=== PATIENT | female | born 1985 | race Caucasian/White ===

== ENCOUNTER 2016-12-22 00:41 | Emergency (ER) | payer OTHER ==
[~2016-12-22] VITALS: Ht 165.1 cm; Wt 88.0 kg
[~2016-12-22 00:41] MED LIST: CYCL-319 PO; IBUP200C PO; IBUP800T25 PO
[2016-12-22 00:53] VITALS: Ht 165.1 cm; Wt 88.0 kg
[2016-12-22] MEDS ORDERED: ONDA4TAB8 PO (03:27)
--- NOTE | 2016-12-22 03:50 | ERD ---
ER Documentation Chief Complaint Date/Time DATE: 12/22/16 TIME: 03:48 Chief Complaint vomiting x 1 x 1 hour HPI This is a 31-year-old female at comes to the ER complaining of weakness. Patient states that she had 5 shots of Tequila and that afterwards she began to experience a headache and weakness. Patient took an ibuprofen and states that she had one episode of nonbilious nonbloody vomiting. Patient continues to feel nauseous and states she still has a headache. Patient denies any fevers or chills. She denies abdominal pain. She denies diarrhea. Patient denies chest pain or shortness of breath ROS 12 point review of systems was done, all negative except per HPI. Medications Home Meds Active Scripts Ondansetron Hcl* (Zofran*) 4 Mg Tablet, 4 MG PO Q6H for NAUSEA AND/OR VOMITING, #30 TAB Prov:NAMITA CALLES 12/22/16 Cyclobenzaprine Hcl* (Cyclobenzaprine Hcl*) 10 Mg Tablet, 10 MG PO TID, #15 TAB Prov:ADENIKE BRANCH. BLOCKER AND POLISHER 05/29/16 Ibuprofen* (Motrin*) 800 Mg Tab, 800 MG PO Q8 Y for PAIN AND OR ELEVATED TEMP, # 30 TAB Prov:ADENIKE BRANCH. BLOCKER AND POLISHER 05/29/16 Reported Medications Ibuprofen* (Ibuprofen*) 200 Mg Capsule, 200 MG PO Q6 Y for PAIN, CAP 09/15/14 Allergies Allergies: Coded Allergies: No Known Drug Allergies (Verified Allergy, Mild, 12/22/16) PMhx/Soc Medical and Surgical Hx: pt denies Medical Hx, pt denies Surgical Hx History of Surgery: No Anesthesia Reaction: No Hx Neurological Disorder: No Hx Respiratory Disorders: No Hx Cardiac Disorders: No Hx Psychiatric Problems: No Hx Miscellaneous Medical Probl: No Hx Alcohol Use: Yes (socially) Hx Substance Use: No Hx Tobacco Use: No Smoking Status: Never smoker Physical Exam Vitals Vital Signs Date Time Temp Pulse Resp B/P Pulse Ox O2 Delivery O2 Flow Rate FiO2 12/22/16 00:53 99.0 108 20 149/82 99 Physical Exam GENERAL: The patient is well developed and appropriate for usual state of health , in no apparent distress. HEENT: Atraumatic. Conjunctivae are pink. Pupils equal, round, and reactive to light. Extraocular muscles are grossly intact. No nystagmus. Bilateral tympanic membranes are clear with no evidence of erythema, bulging or perforation. NECK: C-spine is soft and supple. There is no cervical lymphadenopathy. CHEST: Clear to auscultation bilaterally. There are no rales, wheezes or rhonchi. HEART: Regular rate and rhythm. No murmurs, clicks, rubs or gallops. EXTREMITIES: Equal pulses bilaterally. There is no peripheral clubbing, cyanosis or edema. No focal swelling or erythema. Full range of motion. Grossly neurovascularly intact. NEURO: Alert and oriented. Cranial nerves II through XII are intact. Motor strength in all 4 extremities with 5/5 strength. Sensation grossly intact. Normal speech and gait. Negative Rhomberg. +2 DTRs. SKIN: There is no apparent rash or petechia. The skin is warm and dry. Procedures/MDM This is a 31-year-old female that presents to the ER for vomiting and fatigue. Patient did have 5 shots of tequila and had an ibuprofen, her symptoms began after this. Suspicion for GI bleed is low as patient has not had any blood in her vomit. Patient likely feels weak and has a headache secondary to dehydration from excessive drinking. Patient neurological exam is benign. She does not have any focal neurological deficits. Patient will be sent home with Bronson for nausea, she was advised to drink a lot of water. Patient is to follow-up with her primary care doctor within 1-2 days or return to ER sooner if symptoms worsen. My medical decision making sure with the patient she understands and agrees with plan Departure Diagnosis: Primary Impression: Vomiting Condition: Stable Patient Instructions: Vomiting (6Y-Adult) Referrals: FELICIA EDMOND MD (PCP) Additional Instructions: Call your primary care doctor TOMORROW for an appointment during the next 1-2 days.See the doctor sooner or return here if your condition worsens before your appointment time. NAMITA CALLES Dec 22, 2016 03:50
[2016-12-22 04:19] VITALS: BP 120/82; PULSE 78; RESP 16
== END 2016-12-22 04:21 | disposition home or self-care (01) ==
LOC: FTE 00:41
DX: R11.10 Vomiting, unspecified (principal)
CPT/HCPCS: 99283

== ENCOUNTER 2017-03-22 15:50 | Emergency (ER) | payer OTHER ==
[~2017-03-22] VITALS: Wt 87.0 kg
[~2017-03-22 15:50] MED LIST changes: +ONDA4TAB8 PO
[2017-03-22] MEDS ORDERED: ONDANSETRON (ODT) 4 MG TAB ODT STA (16:22)
[2017-03-22] MEDS ORDERED: ACETAMINOPHEN 325 MG TAB PO ONE (16:30)
--- NOTE | 2017-03-22 16:59 | RADRPT ---
PROCEDURE: CT Head without contrast. CLINICAL INDICATION: Headaches TECHNIQUE: The study was performed utilizing a GE 64-slice multidetector CT scanner. Direct spiral axial CT images of the brain were obtained from the vertex to the skull base without contrast. Cor onal and sagittal reformat images are provided. The CTDI vol is 44.77 mGy and the DLP is 630.2 mGy- cm. The images were reviewed on a PACS workstation. COMPARISON: No prior studies are available for comparison. FINDINGS: The ventricles and cortical sulci are within normal limits. The gonzalez-white matter differentiation i s maintained. No intra or extra-axial fluid collection or mass effect or shift in the midline struc tures is seen. The visualized paranasal sinuses, mastoid air cells, orbits, and calvarium are unrem arkable. IMPRESSION: Unremarkable CT of the head without contrast. RPTAT: HPNM Physician Richie Date Time Electronically viewed and signed by Physician Richie on 03/22/2017 16:59 /
[2017-03-22] MEDS ORDERED: FIORICET PO (17:41)
--- NOTE | 2017-03-22 17:49 | ERD ---
ER Documentation Chief Complaint Date/Time DATE: 03/22/17 TIME: 17:45 Chief Complaint HEADACHE X3DAYS WITH NAUSEA HPI 31-year-old female patient with no significant past medical history presents to the ED complaining of a headache that started 3 days ago with nausea. Reports that she started to get blurred vision 3 days ago intermittently. States that she seen a corporate lawyer and has been given glasses to help her with her blurred vision however she still gets blurred vision with her glasses on. Describes the headache as pressure-like and rates it a 8 out of 10. States that she has been taking ibuprofen without any relief of the headache. States that she did have a head trauma one year ago but did not get evaluated for that. Denies any loss of consciousness. States that she is nauseous but denies any vomiting. She has some slight photophobia. Denies any photophobia. Denies any seizures, fever, neck stiffness, neck pain, abdominal pain, nausea, vomiting, diarrhea. Denies any eye pain, diplopia. 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 ROS All systems reviewed and are negative except as per history of present illness. Medications Home Meds Active Scripts Acetamin/Butalbital/Caffeine* (Fioricet*) [id number] Tab, 1 TAB PO Q6H Y for PAIN, #30 TAB Prov:JENNIFER URIOSTEGUI PA-C 03/22/17 Ondansetron Hcl* (Zofran*) 4 Mg Tablet, 4 MG PO Q6H for NAUSEA AND/OR VOMITING, #30 TAB Prov:NAMITA CALLES 12/22/16 Cyclobenzaprine Hcl* (Cyclobenzaprine Hcl*) 10 Mg Tablet, 10 MG PO TID, #15 TAB Prov:ADENIKE BRANCH FUNERAL LIMOUSINE DRIVER 05/29/16 Ibuprofen* (Motrin*) 800 Mg Tab, 800 MG PO Q8 Y for PAIN AND OR ELEVATED TEMP, # 30 TAB Prov:ADENIKE BRANCH FUNERAL LIMOUSINE DRIVER 05/29/16 Reported Medications Ibuprofen* (Ibuprofen*) 200 Mg Capsule, 200 MG PO Q6 Y for PAIN, CAP 09/15/14 Allergies Allergies: Coded Allergies: No Known Drug Allergies (Verified Allergy, Mild, 12/22/16) PMhx/Soc History of Surgery: No Anesthesia Reaction: No Hx Neurological Disorder: No Hx Respiratory Disorders: No Hx Cardiac Disorders: No Hx Psychiatric Problems: No Hx Miscellaneous Medical Probl: No Hx Alcohol Use: Yes (socially) Hx Substance Use: No Hx Tobacco Use: No Physical Exam Vitals Vital Signs Date Time Temp Pulse Resp B/P Pulse Ox O2 Delivery O2 Flow Rate FiO2 03/22/17 15:52 98.8 87 12 128/73 99 Physical Exam Const: Hqb-cmu-[id number], well-nourished. In no acute distress. Head: Atraumatic, normocephalic Eyes: Normal Conjunctiva without injection. No purulent discharge. PERRLA. EOMI ENT: Normal external ear. Ear canal without erythema. Tympanic membrane pearly gonzalez without effusion or bulging. Nasal canal clear with normal turbinates. Moist oropharynx without tonsillar exudates. Non-erythematous pharynx. Uvula midline. No drooling. No trismus. Neck: No cervical midline tenderness. Full range of motion. No meningismus. No cervical lymphadenopathy. No JVD. Resp: Clear to auscultation bilaterally. No wheezing, rhonchi, rales, or crackles. No accessory muscle use. No retractions. Cardio: Regular rate and rhythm. No murmurs, rubs or gallops. Abd: Soft, non tender, non distended. Normal bowel sounds. No palpable masses. No rebound tenderness. No guarding. Negative McBurney's Point. Negative Elias's Sign. Skin: Normal skin turgor. No petechiae or rashes Back: No midline tenderness. No CVA tenderness. Ext: No cyanosis, or edema. Distal pulses intact bilaterally. Neur: Awake and alert. Normal gait. Normal coordination. Cranial Nerves II- VII intact. Normal finger to nose. Muscle strength 5/5. Sensation intact. Psych: Normal Mood and Affect Results 24 hrs Current Medications Medications (Trade) Dose Ordered Sig/Richard Route PRN Reason Start Time Stop Time Status Last Admin Dose Admin Ondansetron HCl (Zofran Odt) 4 mg ONCE STAT ODT 03/22/17 16:22 03/22/17 16:24 DC 03/22/17 16:33 Acetaminophen (Tylenol Tab) 650 mg ONCE ONCE PO 03/22/17 16:30 03/22/17 16:31 DC 03/22/17 16:33 Procedures/MDM This is a 31-year-old female patient with a previous history of Bryan's palsy presents the ED complaining of a headache that started 3 days ago. Patient is afebrile nontoxic appearing. Patient has normal vital signs. Visual acuity 20/ 20 Bilaterally, Left and Right. Patient given Zofran and Tylenol with improvement of symptoms. PROCEDURE: CT Head without contrast. CLINICAL INDICATION: Headaches TECHNIQUE: The study was performed utilizing a GE 64-slice multidetector CT scanner. Direct spiral axial CT images of the brain were obtained from the vertex to the skull base without contrast. Coronal and sagittal reformat images are provided. The CTDI vol is 44.77 mGy and the DLP is 630.2 mGy-cm. The images were reviewed on a PACS workstation. COMPARISON: No prior studies are available for comparison. FINDINGS: The ventricles and cortical sulci are within normal limits. The gonzalez-white matter differentiation is maintained. No intra or extra-axial fluid collection or mass effect or shift in the midline structures is seen. The visualized paranasal sinuses, mastoid air cells, orbits, and calvarium are unremarkable. IMPRESSION: Unremarkable CT of the head without contrast. Patient's headache is nonspecific at this time. Low suspicion for cluster headache, intracranial bleed, subarachnoid hemorrhage, epidural hematoma, Bryan' s Palsy, carotid dissection, carotid aneurysm, subdural hematoma, seizures, TIA , stroke, meningitis or emergent conditions. This case was discussed with my supervising physician, Dr. Silva who agreed with the management and discharge plan. Discharge medications: Fioricet Follow up with primary care physician in 1-2 days for a neurology referral. Instructed patient to return to the ED sooner for any worsening symptoms. Patient's questions were answered. Patient understood and agreed with discharge plan. Patient discharged stable. Departure Diagnosis: Primary Impression: Headache Headache type: unspecified Headache chronicity pattern: unspecified pattern Intractability: not intractable Qualified Code: R51 - Nonintractable headache, unspecified chronicity pattern, unspecified headache type Condition: Stable Patient Instructions: Headache, Unspecified Referrals: FELICIA EDMOND MD (PCP) QUANG CORONA MD,AAKASH VALDOVINOS,GINO QUIROGA MD, MD, ANDREW M MD HIJAZIN, MUNTHER A KARAYAN, RONNIE TIAGO,SYL LEIGH,KELLY JASSO MD [facility] YOU HAVE RECEIVED A MEDICAL SCREENING EXAM AND THE RESULTS INDICATE THAT YOU DO NOT HAVE A CONDITION THAT REQUIRES URGENT TREATMENT IN THE EMERGENCY DEPARTMENT. FURTHER EVALUATION AND TREATMENT OF YOUR CONDITION CAN WAIT UNTIL YOU ARE SEEN IN YOUR DOCTORS OFFICE WITHIN THE NEXT 1-2 DAYS. IT IS YOUR RESPONSIBILITY TO MAKE AN APPOINTMENT FOR FOLOW-UP CARE. IF YOU HAVE A PRIMARY DOCTOR --you should call your primary doctor and schedule an appointment IF YOU DO NOT HAVE A PRIMARY DOCTOR YOU CAN CALL OUR PHYSICIAN REFERRAL HOTLINE AT IF YOU CAN NOT AFFORD TO SEE A PHYSICIAN YOU CAN CHOSE FROM THE FOLLOWING [facility] [address] [facility] [address] [facility] [facility] [address] [facility] [address] [facility] [address]. [facility] [address] [facility]. [facility] YOU HAVE RECEIVED A MEDICAL SCREENING EXAM AND THE RESULTS INDICATE THAT YOU DO NOT HAVE A CONDITION THAT REQUIRES URGENT TREATMENT IN THE EMERGENCY DEPARTMENT. FURTHER EVALUATION AND TREATMENT OF YOUR CONDITION CAN WAIT UNTIL YOU ARE SEEN IN YOUR DOCTORS OFFICE WITHIN THE NEXT 1-2 DAYS. IT IS YOUR RESPONSIBILITY TO MAKE AN APPOINTMENT FOR FOLOW-UP CARE. IF YOU HAVE A PRIMARY DOCTOR --you should call your primary doctor and schedule and appointment IF YOU DO NOT HAVE A PRIMARY DOCTOR YOU CAN CALL OUR PHYSICIAN REFERRAL HOTLINE AT . IF YOU CAN NOT AFFORD TO SEE A PHYSICIAN YOU CAN CHOSE FROM THE FOLLOWING [facility]: [facility] [address] [place] [address] [facility] [address] [place] [address] [facility] [address] [place] [address] [facility] URGENT [facility]/SPECIALTIES Additional Instructions: Llame al doctor MAANA y katty jayda STEFANO PARA DENTRO DE 2-3 MONZON para jayda referencia a un neurlogo. Dgale a la secretaria que nosotros le instruimos hacer esta stefano.Avise o llame si lemus condicin se empeora antes de la stefano. Regresa aqui si peor o no mejor. JENNIFER URIOSTEGUI PA-C March 22, 2017 17:49
== END 2017-03-22 17:42 | disposition home or self-care (01) ==
LOC: FTE 15:50
DX: R51 Headache (principal); R11.0 Nausea
CPT/HCPCS: 70450; Z7610

== ENCOUNTER 2017-04-15 11:54 | Day surgery (SDC) | payer OTHER ==
[~2017-04-15] VITALS: Ht 162.6 cm; Wt 87.3 kg
[~2017-04-15 11:54] MED LIST changes: +FIORICET PO
[2017-04-15 12:48] VITALS: Ht 162.6 cm; Wt 87.3 kg
[2017-04-15] MEDS ORDERED: OMEP20CA16 PO (12:50)
[2017-04-15] MEDS ORDERED: VIT D3 (12:50)
[2017-04-15] MEDS ORDERED: LIDOCAINE 4% SOLUTION 50 ML BTL ONE (13:53)
[2017-04-15] MEDS ORDERED: FENTAnyl 50 MCG/ML VIAL ONE (14:17)
[2017-04-15] MEDS ORDERED: MIDAZOLAM 1 MG/ML 2 ML INJ ONE ×2 (14:17)
[2017-04-15 14:40] VITALS: BP 103/70; PULSE 67; RESP 18
--- NOTE | 2017-04-15 21:08 | GILP ---
DATE OF PROCEDURE: PREOPERATIVE DIAGNOSIS: Abdominal pain. The patient is on ibuprofen. PROCEDURE DONE: Esophagogastroduodenoscopy and biopsy. POSTOPERATIVE DIAGNOSES: 1. Mild distal esophagitis grade I. 2. Gastroesophageal junction with narrow band visualized, has only 1 erosion. 3. Small hiatus hernia noted. 4. In the antrum, there was evidence of antral nodularity with gastritis. This was photographed an d biopsies done. DESCRIPTION OF PROCEDURE: The patient was put in left lateral decubitus. After obtaining informed consent, was sedated with 3 mg IV Versed, 75 mcg of fentanyl. Posterior pharynx anesthetized with 4 % Xylocaine. Very carefully, advanced Olympus video upper endoscope into the esophagus, stomach, an d duodenum. Esophagus was essentially normal except at the GE junction there was 1 erosion, mild es ophagitis suspected here, small hiatus hernia about 2 cm in size, and examination of the stomach inc luding fundus by retroflexion was normal except for antral nodularity with mild gastritis. This may be NSAID induced; however, biopsies done to rule out H. pylori. Duodenal bulb and second and third part normal. Scope was withdrawn. The patient had no complication. PLAN: Will be to await for biopsy report. Advised her to avoid NSAID medication if possible. She is taking it for sciatica. She is going to see orthopedic arthroscopic surgeon, I believe, soon. I will follow her as outpatient in 2 weeks. Dictated By: JOO FELDMAN Conf#: [id number] DID#: [id number] CC: Stevan Ceballos;*EndCC*
[2017-04-16] MEDS ORDERED: ONDA8TAB14 PO (02:24)
[2017-04-16] MEDS ORDERED: FIORICET PO (02:24)
== END 2017-04-15 16:12 | disposition home or self-care (01) ==
LOC: GIL 11:54
PROVIDERS: ATTEND Internal Medicine
DX: K20.8 Other esophagitis (principal); K44.9 Diaphragmatic hernia without obstruction or gangrene
CPT/HCPCS: 43239; 84702; 88305; J2250; J3010; Z7610

== ENCOUNTER 2017-04-15 23:06 | Emergency (ER) | payer OTHER ==
[~2017-04-15] VITALS: Ht 162.6 cm; Wt 82.7 kg
[~2017-04-15 23:06] MED LIST changes: +OMEP20CA16 PO; +VIT D3
[2017-04-15 23:07] VITALS: Ht 162.6 cm; Wt 82.7 kg
[2017-04-16] MEDS ORDERED: ONDANSETRON (ODT) 4 MG TAB ODT STA (01:05)
[2017-04-16] MEDS ORDERED: ACET/BUTAL/CAFF/CODEINE CAP PO ONE (01:30)
[2017-04-16] MEDS ORDERED: ONDA8TAB14 PO (02:24)
[2017-04-16] MEDS ORDERED: FIORICET PO (02:24)
--- NOTE | 2017-04-16 02:35 | ERD ---
ER Documentation Chief Complaint Date/Time DATE: 04/16/17 TIME: 02:25 Chief Complaint RETURNS (SEEN EARLIER TODAY, DX ESOPHAGITIS) FOR THROAT & HEAD PAIN X 3 HRS HPI Patient is a 31-year-old female with a past medical history of migraines presents to the emergency department for concerns of throat pain and headache. Patient states her symptoms started approximately 3 hours ago. Earlier this morning, patient underwent an endoscopy. She was diagnosed with esophagitis. Patient states that her headache is primarily in the frontal region. Patient reports nausea and 2 episodes of nonbloody nonbilious vomiting. Patient also does report photophobia. Patient denies any fevers, chills, neck pain, neck stiffness or LOC. Patient states she took sumatriptan approximately 2 hours ago however she had no alleviation of her headache. Patient states that her pain is getting gradually worse. Patient denies sudden, thunderclap onset. Patient states that her current headache does feel like previous migraines. She also reports throat pain. Patient denies any drooling, trismus or hyperextension of her neck. Patient denies any abdominal pain or diarrhea. She is able to tolerate p.o. fluids. ROS All systems reviewed and are negative except as per history of present illness. Medications Home Meds Active Scripts Acetamin/Butalbital/Caffeine* (Fioricet*) [id number] Tab, 1 TAB PO Q6H Y for PAIN, #15 TAB Prov:ALEISHA LIANG PA-C 04/16/17 Ondansetron (Ondansetron Odt) 8 Mg Tab.rapdis, 8 MG PO Q6H Y for NAUSEA AND/OR VOMITING, #10 TAB Prov:ALEISHA LIANG PA-C 04/16/17 Ibuprofen* (Motrin*) 800 Mg Tab, 800 MG PO Q8 Y for PAIN AND OR ELEVATED TEMP, # 30 TAB Prov:ADENIKE BRANCH NP 05/29/16 Reported Medications [Vit.d-3 Daily] No Conflict Check 04/15/17 Omeprazole* (Omeprazole*) 20 Mg Capsule.dr, 20 MG PO DAILY, #30 CAP 04/15/17 Ibuprofen* (Ibuprofen*) 200 Mg Capsule, 200 MG PO Q6 Y for PAIN, CAP 09/15/14 Discontinued Scripts Acetamin/Butalbital/Caffeine* (Fioricet*) [id number] Tab, 1 TAB PO Q6H Y for PAIN, #30 TAB Prov:JENNIFER URIOSTEGUI PA-C 03/22/17 Ondansetron Hcl* (Zofran*) 4 Mg Tablet, 4 MG PO Q6H for NAUSEA AND/OR VOMITING, #30 TAB Prov:STEVANNAMITA Wallace 12/22/16 Cyclobenzaprine Hcl* (Cyclobenzaprine Hcl*) 10 Mg Tablet, 10 MG PO TID, #15 TAB Prov:ADENIKE BRANCH DATA ENTRY CLERK 05/29/16 Allergies Allergies: Coded Allergies: No Known Drug Allergies (Verified Allergy, Mild, 12/22/16) PMhx/Soc History of Surgery: Yes (C/S X 1) Anesthesia Reaction: No Hx Neurological Disorder: Yes (MIGRAINES) Hx Respiratory Disorders: No Hx Cardiac Disorders: No Hx Psychiatric Problems: No Hx Miscellaneous Medical Probl: No Hx Alcohol Use: Yes Hx Substance Use: No Hx Tobacco Use: No Smoking Status: Never smoker FmHx Family History: No diabetes Physical Exam Vitals Vital Signs Date Time Temp Pulse Resp B/P Pulse Ox O2 Delivery O2 Flow Rate FiO2 04/15/17 23:07 99.3 86 18 156/86 100 Physical Exam GENERAL: Well-developed, well-nourished female. Appears in no acute distress. HEAD: Normocephalic, atraumatic. EYES: Pupils are equally reactive bilaterally. EOMs grossly intact. No conjunctival erythema. ENT: Moist mucous membranes. Oropharynx is pink without any tonsillar erythema or exudates noted. No uvula deviation. No kissing tonsils. No throat swelling noted. No active bleeding noted. NECK: Supple. No meningismus. Normal range of motion of the neck. LUNG: Clear to auscultation bilaterally. No rhonchi, wheezing, rales or coarse breath sounds. HEART: Regular rate and rhythm. No murmurs, rubs or gallops. EXTREMITIES: Equal pulses bilaterally. No peripheral clubbing, cyanosis or edema. No unilateral leg swelling. NEUROLOGIC: Alert and oriented x3, cooperative. Mood and affect appropriate to situation. Cranial nerves II through XII are grossly intact. Normal speech. Motor exam: 5/5 strength in upper and lower extremities. Sensory exam: Sensation intact to light touch on all four extremities. Cerebellar function exam: No dysmetria on [id number]-er-bwex test. Steady gait. No pronator drift. SKIN: Normal color. Warm and dry. No rashes or lesions. Results 24 hrs Current Medications Medications (Trade) Dose Ordered Sig/Richard Route PRN Reason Start Time Stop Time Status Last Admin Dose Admin Acetam/Butalbital/ Caffeine/Codeine (Fioricet/ Codeine) 1 cap ONCE ONCE PO 04/16/17 01:30 04/16/17 01:31 DC 04/16/17 01:31 Ondansetron HCl (Zofran Odt) 4 mg ONCE STAT ODT 04/16/17 01:05 04/16/17 01:07 DC 04/16/17 01:30 Procedures/MDM ED COURSE: The patient was stable throughout ED course. I kept the patient and/or family informed of laboratory and diagnostic imaging results throughout the ED course. MEDICATIONS GIVEN: Fioricet with codeine, Zofran Patient tolerated medication well with no adverse reactions. Patient reported improvement in pain. MEDICAL DECISION MAKING: This is a 31-year-old female who presents to the ED with a headache and throat irritation which started 3 hours ago. Patient underwent an endoscopy earlier this morning. Patient reports taking sumatriptan 2 hours ago which did not alleviate her headache. Vital signs were reviewed. Patient was afebrile. Patient is not hypoxic. Full neurological exam was normal. She was given Fioricet with codeine as well as Zofran here in the ED. No additional episodes of vomiting were noted throughout the ED course. Patient was noted to be sleeping upon my reexamination. Patient did not appear to be in any severe discomfort or distress.. Given these findings, the patient's presentation is most consistent with migraine headache and throat irritation secondary to endoscopy procedure. I have a much lower clinical concern for intracranial hemorrhage, meningitis, encephalitis, CO poisoning, temporal arteritis, benign intracranial hypertension, intracranial mass, glaucoma, preeclampsia, cluster headache, strep pharyngitis, peritonsillar abscess, esophageal rupture. PRESCRIPTIONS: Fioricet, Zofran DISCHARGE: At this time, patient is stable for discharge and outpatient management. Patient was advised to follow-up with her GI specialist for further management of her symptoms. I have encouraged the patient to hydrate well. I have instructed the patient to follow-up with his/her primary care physician in 1-2 days. If symptoms persist, patient may need to see a neurologist for further examinations and testing. I have instructed the patient to promptly return to the ER at any time for any new or worsening symptoms including increased increased pain, fever, nausea, vomiting, numbness, neck stiffness, visual changes, weakness or LOC. The patient and/or family expressed understanding of and agreement with this plan. All questions were answered. Home care instructions were provided. Patient's blood pressure was elevated (>120/80) but appears stable without evidence of hypertensive emergency, hypertensive urgency or end-organ failure. I had discussion with the patient about the risks of hypertension. I have advised the patient to follow up with his/her primary care physician for outpatient monitoring and treatment for hypertension in 2-3 days. I have instructed the patient to return to the ER for any new or worsening symptoms including chest pain, shortness of breath, headache, blurred vision, confusion, nausea, vomiting or LOC. Departure Diagnosis: Primary Impression: Migraine Migraine type: unspecified Status migrainosus presence: without status migrainosus Intractability: not intractable Qualified Code: G43.909 - Migraine without status migrainosus, not intractable, unspecified migraine type Additional Impression: Throat irritation Condition: Stable Patient Instructions: What Are Migraine and Tension Headaches?, Recovery from Mouth or Throat Surgery Additional Instructions: Call your primary care doctor TOMORROW for an appointment during the next 1-2 days.See the doctor sooner or return here if your condition worsens before your appointment time. Follow-up with your GI specialist for further management of your esophagitis. ALEISHA LAING PA-C Apr 16, 2017 02:35
[2017-04-16 03:05] VITALS: BP 125/77; PULSE 81; RESP 16
== END 2017-04-16 03:05 | disposition home or self-care (01) ==
LOC: FTE 23:06
DX: G43.909 Migraine, unspecified, not intractable, without status migrainosus (principal)
CPT/HCPCS: Z7502; Z7610; 99284

== ENCOUNTER 2017-05-22 01:33 | Emergency (ER) | payer OTHER ==
[~2017-05-22] VITALS: Ht 167.6 cm; Wt 87.1 kg
[~2017-05-22 01:33] MED LIST changes: -CYCL-319 PO; -ONDA4TAB8 PO; +ONDA8TAB14 PO
[2017-05-22 01:43] VITALS: Ht 167.6 cm; Wt 87.1 kg
[2017-05-22] MEDS ORDERED: KETOROLAC 60 MG INJ IM STA (02:30)
[2017-05-22] MEDS ORDERED: ONDANSETRON (ODT) 4 MG TAB ODT STA (02:30)
--- NOTE | 2017-05-22 02:41 | ERD ---
ER Documentation Chief Complaint Date/Time DATE: 05/22/17 TIME: 02:39 Chief Complaint back pain and dysuria HPI 31-year-old female who presents emergency department for dysuria, back pain for 2 days. Denies headache, loss of consciousness, dizziness, blurry vision, changes in vision, photophobia, facial pain, ear pain, throat pain, difficulty swallowing, neck pain, shoulder pain, chest pain, cough, hemoptysis, abdominal pain, loss of appetite, nausea, vomiting, hematochezia, diarrhea, constipation, , the possibility of being , bladder and bowel incontinences, extremity weakness, extremity tenderness, numbness or tingling sensation, difficulty walking, recent travel, recent exposure to illness, recent antibiotic use in the last 3 months, fever, chills. Allergy: No known drug allergies. PMH: Denies. Family medical history: Denies. A1. LMP: April 23, 2017. Medications: Denies. Surgery: . Primary Social History: Works as a coffee shop manager. Occasional drinks alcoholic beverages. Denies smoking, use of illegal drugs. ROS All systems reviewed and are negative except as per history of present illness. Medications Home Meds Active Scripts Ibuprofen* (Motrin*) 800 Mg Tab, 800 MG PO Q6H Y for PAIN AND OR ELEVATED TEMP, #30 TAB Prov:GERMAN MARC 05/22/17 Acetaminophen* (Tylophen*) 500 Mg Capsule, 1 CAP PO Q6H Y for PAIN AND OR ELEVATED TEMP, #20 CAP Prov:GERMAN MARC 05/22/17 Ondansetron (Ondansetron Odt) 4 Mg Tab.rapdis, 4 MG PO Q8 Y for NAUSEA AND/OR VOMITING, #20 TAB Prov:GERMAN MARC 05/22/17 Cephalexin* (Keflex*) 500 Mg Capsule, 500 MG PO QID for 5 Days, CAP Prov:GERMAN MARC F 05/22/17 Acetamin/Butalbital/Caffeine* (Fioricet*) [id number] Tab, 1 TAB PO Q6H Y for PAIN, #15 TAB Prov:ALEISHA LIANG PA-C 04/16/17 Ondansetron (Ondansetron Odt) 8 Mg Tab.rapdis, 8 MG PO Q6H Y for NAUSEA AND/OR VOMITING, #10 TAB Prov:ALEISHA LIANG PA-C 04/16/17 Ibuprofen* (Motrin*) 800 Mg Tab, 800 MG PO Q8 Y for PAIN AND OR ELEVATED TEMP, # 30 TAB Prov:ADENIKE BRANCH [employer] 05/29/16 Reported Medications [Vit.d-3 Daily] No Conflict Check 04/15/17 Omeprazole* (Omeprazole*) 20 Mg Capsule.dr, 20 MG PO DAILY, #30 CAP 04/15/17 Ibuprofen* (Ibuprofen*) 200 Mg Capsule, 200 MG PO Q6 Y for PAIN, CAP 09/15/14 Allergies Allergies: Coded Allergies: No Known Drug Allergies (Verified Allergy, Mild, 12/22/16) PMhx/Soc History of Surgery: Yes (C/S X 1) Anesthesia Reaction: No Hx Neurological Disorder: Yes (MIGRAINES) Hx Respiratory Disorders: No Hx Cardiac Disorders: No Hx Psychiatric Problems: No Hx Miscellaneous Medical Probl: No Hx Alcohol Use: Yes (SOCIALLY) Hx Substance Use: No Hx Tobacco Use: No Smoking Status: Never smoker Physical Exam Vitals Vital Signs Date Time Temp Pulse Resp B/P Pulse Ox O2 Delivery O2 Flow Rate FiO2 05/22/17 04:00 98.2 67 18 115/71 99 Room Air 05/22/17 01:43 98.3 70 18 118/70 98 Physical Exam CONSTITUTIONAL: Well-appearing; well-nourished; in no apparent distress. HEAD: Normocephalic; atraumatic. EYES: Conjunctiva clear, sclera non-icteric, EOM intact. PERRL Ears: Hearing intact. EACs clear, TMs non-bulging, non-inflamed, translucent & mobile, ossicles normal appearance, No obstructions, no erythema, no discharges Nose: No obstructions. No polyps. No external lesions. Mucosa non-inflamed. No external lesions, septum and turbinates normal. No rhinorrhea. No discharges. Frontal sinus is non-tender to palpation. Maxillary sinus is non-tender to palpation. MOUTH: Moist mucous membranes, no lesion, no obstructions, no vesicles, no thrush, patent airway Throat: Uvula in midline. Right tonsil is +1 with no erythema, no exudate. Left tonsil is +1 with no erythema, no exudate. Tolerating secretions well. Good gag reflex. Patent airway. Neck: Supple, without lesions, bruits, or adenopathy. No mass. Thyroid non- enlarged and non-tender to palpation. CHEST: Symmetrical chest. Respirations even and not labored. No retractions noted. CARDIOVASCULAR: Normal S1, S2. RRR. No murmurs, gallops. RESPIRATORY: Normal chest excursion with respiration; breath sounds clear and equal bilaterally; no wheezes, rhonchi, or rales. Breathing even and unlabored. Speaking in clear, full, and complete sentences w/ ease. ABDOMEN: Normal bowel sounds normal. Soft, round, non-distended, non-guarding, no tenderness, no rebound, no organomegaly, no masses, no pulsating abdominal mass. There is no right upper/right lower/epigastric/left upper/left lower abdominal tenderness and light and deep palpation. Negative Rovsing's sign. Negative Rosalba sign. Able to jump 10 times without developing abdominal pain. No hernia. No peritoneal signs. : No CVA tenderness. BACK: Symmetrical shoulder. Spine is midline without deformity, tenderness. No evidence of trauma or deformity. PELVIS: Stable pelvis. No evidence of trauma or deformity. MUSCULOSKELETAL: Normal gait and station. No misalignment, asymmetry, crepitation, defects, tenderness, masses, effusions, decreased range of motion, instability, atrophy or abnormal strength or tone in the head, neck, spine, ribs , pelvis or extremities. No calf tenderness. NEUROVASCULAR: Distal pulses are present. Pedal pulse are present, equal, and normal. Capillary refills are < 2 seconds. NEUROLOGIC: Alert and oriented x4. Speaks full and clear sentences. Cranial Nerves II-XII normal. Sensation to pain, touch, and proprioception normal. Grossly unremarkable. No neurologic deficits. Romberg test is negative. PSYCHOLOGICAL: The patients mood and manner are appropriate. No hallucinations , delusions. Not SI. Not HI. Has the capacity to decide for self SKIN: Normal for age and ethnicity; warm; dry; good turgor; no apparent lesions or exudates. No rashes, hives, discoloration. Intact. Results 24 hrs Laboratory Tests Test 05/22/17 02:38 Urine Color PHIL Urine Clarity CLEAR Urine pH 6.0 Urine Specific [place] 1.009 Urine Ketones NEGATIVEmg/dL Urine Nitrite POSITIVEmg/dL Urine Bilirubin NEGATIVEmg/dL Urine Urobilinogen NEGATIVEmg/dL Urine Leukocyte Esterase 2+Veena/ul Urine Microscopic RBC 2/HPF Urine Microscopic WBC 4/HPF Urine Squamous Epithelial Cells FEW/HPF Urine Hemoglobin 1+mg/dL Urine Glucose NEGATIVEmg/dL Urine Total Protein NEGATIVEmg/dl Current Medications Medications (Trade) Dose Ordered Sig/Richard Route PRN Reason Start Time Stop Time Status Last Admin Dose Admin Ketorolac Tromethamine (Toradol) 60 mg ONCE STAT IM 05/22/17 02:30 05/22/17 02:31 DC 05/22/17 02:46 Ondansetron HCl (Zofran Odt) 4 mg ONCE STAT ODT 05/22/17 02:30 05/22/17 02:31 DC 05/22/17 02:46 Procedures/MDM Examination: Please see physical examination Disease process, medical treatment was explained to the patient and family member. They verbalized understanding and agreed with the diagnostic tests, medical treatment, and follow-up care. POC urine : Negative. Urinalysis: UTI Treatment: Toradol IM. Zofran. Re-evaluation: Denies headache, dizziness, blurry vision, neck pain, shoulder pain, chest pain, back pain, abdominal pain, nausea, vomiting. No episode of emesis in the emergency department. Alert and oriented 4. Speaks full and clear sentences. Respirations even and unlabored. Lung sounds clear to auscultation. Active bowel sounds. There is no right upper/right lower/ epigastric/left upper/left lower abdominal tenderness and light and deep palpation. Negative on Rovsings sign. Negative Rosalba sign. Able to jump 5 times without developing right-sided abdominal pain. No peritoneal signs. Ambulatory with steady gait. No neurovascular deficits. No neurological deficits. Consultation: None. Differential diagnosis: Appendicitis versus nephrolithiasis versus pancreatitis versus cholecystitis versus urinary tract infection Medical decision makin-year-old female who presents emergency department for dysuria, back pain for 2 days. Patient's complaint, patient's history about her complaint, my physical findings, diagnostic test results, my reevaluation are consistent my final diagnosis of urinary tract infection. Medications prescribed are the following: Keflex. Zofran. Tylenol. Motrin. Patient and family member are made aware of the side effects and adverse reactions of the medications prescribed. Instructed on when to seek emergent and medical attention in case allergic/anaphylactic reactions or severe side effects and or adverse reactions to medications. Patient and family member verbalized understanding. Patient instructed Instructed to follow-up with his PCP in 24-48 hours. Stated that she will make sure to see her primary care physician the next 24 hours. Instructed to Call 911 for chest pain, shortness of breath. Advised to come back here in ED as soon as possible for severity of symptoms which includes but not limited to: any new symptoms; shortness of breath/difficulty of breathing; cardiovascular changes; severe gastrointestinal symptoms; signs and symptoms of bleeding and or infection; signs of compartment syndrome/neurovascular changes; neurological changes/deficits. Patient and family member verbalized understanding. Upon discharge, patient is alert and oriented x 4, speaks full and clear sentences, denies pain, has no neurological deficits, has no neurovascular deficits, difficulty of breathing. Breathing even and unlabored. Lung sounds are clear to auscultation. Not in distress. Appears comfortable. Ambulatory with steady gait. Appears satisfied with care provided here in ED. Departure Diagnosis: Primary Impression: UTI (urinary tract infection) Condition: Good Additional Instructions: Instructed to follow-up with his PCP in 24-48 hours. Stated that she will make sure to see her primary care physician the next 24 hours. Instructed to Call 911 for chest pain, shortness of breath. Advised to come back here in ED as soon as possible for severity of symptoms which includes but not limited to: any new symptoms; shortness of breath/difficulty of breathing; cardiovascular changes; severe gastrointestinal symptoms; signs and symptoms of bleeding and or infection; signs of compartment syndrome/neurovascular changes; neurological changes/deficits. Patient and family member verbalized understanding. GERMAN MARC May 22, 2017 02:41
[2017-05-22 03:27] LABS: ADD UMIC YES; UR ASCORBIC ACID NEGATIVE (NEGATIVE); UR BILIRUBIN (Dip) NEGATIVE (NEGATIVE); UR BLOOD (Dip) 1+ mg/dL (NEGATIVE); UR CLARITY CLEAR (CLEAR); UR COLOR AMBER (YELLOW); UR GLUCOSE (Dip) NEGATIVE (NEGATIVE); UR KETONES (Dip) NEGATIVE (NEGATIVE); UR LEUKOCYTE ESTERASE (Dip) 2+ Leu/ul (NEGATIVE); UR NITRITE (Dip) POSITIVE (NEGATIVE); UR RBC 2 /HPF (0-5); UR SPECIFIC GRAVITY (Dip) 1.009 (1.003-1.030); UR SQUAMOUS EPITHELIAL CELL FEW /HPF (FEW); UR TOTAL PROTEIN (Dip) NEGATIVE (NEGATIVE); UR UROBILINOGEN (Dip) NEGATIVE (NEGATIVE)
[2017-05-22] MEDS ORDERED: CEPH-443 PO (03:44)
[2017-05-22] MEDS ORDERED: ONDA4TAB14 PO (03:44)
[2017-05-22] MEDS ORDERED: ACET500C5 PO (03:44)
[2017-05-22] MEDS ORDERED: IBUP800T25 PO (03:45)
[2017-05-22 04:00] VITALS: BP 115/71; PULSE 67; RESP 18; TEMP 98.2
== END 2017-05-22 04:00 | disposition home or self-care (01) ==
LOC: FTE 01:33
DX: N39.0 Urinary tract infection, site not specified (principal)
CPT/HCPCS: 81001; 96372; J1885; Z7502; Z7610

== ENCOUNTER 2017-06-03 11:37 | Emergency (ER) | payer OTHER ==
[~2017-06-03] VITALS: Ht 160 cm; Wt 86.0 kg
[~2017-06-03 11:37] MED LIST changes: +ACET500C5 PO; +CEPH-443 PO; +ONDA4TAB14 PO
[2017-06-03 11:42] VITALS: Ht 160 cm; Wt 86.0 kg
[2017-06-03] MEDS ORDERED: FAMOTIDINE 20 MG INJ IV STA (13:02)
[2017-06-03] MEDS ORDERED: ONDANSETRON 4 MG INJ IV STA (13:02)
[2017-06-03] MEDS ORDERED: morphine 4 MG/ML VIAL IV STA (13:02)
[2017-06-03] MEDS ORDERED: LIDOCAINE/MYLANTA 40 ML BTL PO ONE (13:30)
[2017-06-03 13:36] LABS: ADD UMIC NO; UR ASCORBIC ACID NEGATIVE (NEGATIVE); UR BILIRUBIN (Dip) NEGATIVE (NEGATIVE); UR BLOOD (Dip) NEGATIVE (NEGATIVE); UR CLARITY CLEAR (CLEAR); UR COLOR YELLOW (YELLOW); UR GLUCOSE (Dip) NEGATIVE (NEGATIVE); UR KETONES (Dip) NEGATIVE (NEGATIVE); UR LEUKOCYTE ESTERASE (Dip) NEGATIVE Leu/ul (NEGATIVE); UR NITRITE (Dip) NEGATIVE (NEGATIVE); UR SPECIFIC GRAVITY (Dip) 1.017 (1.003-1.030); UR TOTAL PROTEIN (Dip) NEGATIVE (NEGATIVE); UR UROBILINOGEN (Dip) NEGATIVE (NEGATIVE)
--- NOTE | 2017-06-03 13:43 | RADRPT ---
PROCEDURE: Right Upper Quadrant Ultrasound. CLINICAL INDICATION: Abdominal Pain TECHNIQUE: Multiple real-time images were acquired of the patient's right upper quadrant abdomen a nd retroperitoneum utilizing a high resolution transducer. COMPARISON: None FINDINGS: The liver measures 16.8 cm, and demonstrates mildly increased echogenicity. The main portal vein is patent with proper directional flow. There is no intrahepatic biliary ductal dilatation. The extrahe patic common bile duct measures 5 mm. There is cholelithiasis. There is no gallbladder wall thickening or pericholecystic fluid. The visualized pancreas is unremarkable. The right kidney measures 11.7 cm and demonstrates normal echotexture. There is no right renal calcu elvie or hydronephrosis. The visualized abdominal aorta and IVC are grossly unremarkable. IMPRESSION: Mild hepatomegaly with mild fatty infiltration. Cholelithiasis without evidence of acute cholecystitis. Normal CBD. RPTAT: EE Physician Tawana Date Time Electronically viewed and signed by Physician Tawana on 06/03/2017 13:43 /
[2017-06-03 13:48] LABS: BASOPHILS % 0.4 % (0.0-2.0); EOSINOPHILS # 0.1 10^3/ul (0.0-0.5); EOSINOPHILS % 1.9 % (0.0-7.0); HEMATOCRIT 42.2 % (37.0-47.0); HEMOGLOBIN 14.5 g/dl (12.0-16.0); LYMPHOCYTES # 2.2 10^3/ul (0.8-2.9); LYMPHOCYTES % 29.4 % (15.0-51.0); MEAN CORPUSCULAR HEMOGLOBIN 29.6 pg (29.0-33.0); MEAN CORPUSCULAR HGB CONC 34.4 g/dl (32.0-37.0); MEAN CORPUSCULAR VOLUME 86.1 fl (82.0-101.0); MONOCYTE # 0.5 10^3/ul (0.3-0.9); MONOCYTES % 6.6 % (0.0-11.0); NEUTROPHIL # 4.5 10^3/ul (1.6-7.5); NEUTROPHILS % 61.3 % (39.0-77.0); PLATELET COUNT 220 10^3/UL (140-415); RED CELL DISTRIBUTION WIDTH 12.4 % (11.5-14.5); WHITE BLOOD COUNT 7.4 10^3/ul (4.8-10.8)
--- NOTE | 2017-06-03 13:57 | ERD ---
ER Documentation Chief Complaint Date/Time DATE: 06/03/17 TIME: 13:56 Chief Complaint EPIGASTRIC PAIN X 10 DAYS HPI This a 31-year-old female presents the emergency department today complaining of abdominal pain for the past 10 days but worse over the past couple of days. States that she had a scope in April but does not have an appointment for follow- up until next month. States she called that doctor today and was told to come to the ER. Denies any fevers or chills, nausea or vomiting. States she takes omeprazole daily. ROS All systems reviewed and are negative except as per history of present illness. Medications Home Meds Active Scripts Ondansetron Hcl* (Zofran*) 4 Mg Tablet, 4 MG PO Q6H for NAUSEA AND/OR VOMITING, #30 TAB Prov:FÉLIX BERMUDEZ PA-C 06/03/17 Hydrocodone/Acetaminophen ([place] 5-325 Tablet) 1 Each Tablet, 1 TAB PO Q6H Y for PAIN, #12 TAB Prov:FÉLIX BERMUDEZ PA-C 06/03/17 Ibuprofen* (Motrin*) 800 Mg Tab, 800 MG PO Q6H Y for PAIN AND OR ELEVATED TEMP, #30 TAB Prov:PASILAGERMAN ZAFAR F 05/22/17 Acetaminophen* (Tylophen*) 500 Mg Capsule, 1 CAP PO Q6H Y for PAIN AND OR ELEVATED TEMP, #20 CAP Prov:GERMAN MARC F 05/22/17 Ondansetron (Ondansetron Odt) 4 Mg Tab.rapdis, 4 MG PO Q8 Y for NAUSEA AND/OR VOMITING, #20 TAB Prov:GERMAN MARC 05/22/17 Cephalexin* (Keflex*) 500 Mg Capsule, 500 MG PO QID for 5 Days, CAP Prov:PASILAGERMAN ZAFAR F 05/22/17 Acetamin/Butalbital/Caffeine* (Fioricet*) [id number] Tab, 1 TAB PO Q6H Y for PAIN, #15 TAB Prov:ALEISHA LIANG PA-C 04/16/17 Ondansetron (Ondansetron Odt) 8 Mg Tab.rapdis, 8 MG PO Q6H Y for NAUSEA AND/OR VOMITING, #10 TAB Prov:ALEISHA LIANG PA-C 04/16/17 Ibuprofen* (Motrin*) 800 Mg Tab, 800 MG PO Q8 Y for PAIN AND OR ELEVATED TEMP, # 30 TAB Prov:ADENIKE BRANCH [employer] 05/29/16 Reported Medications [Vit.d-3 Daily] No Conflict Check 04/15/17 Omeprazole* (Omeprazole*) 20 Mg Capsule.dr, 20 MG PO DAILY, #30 CAP 04/15/17 Ibuprofen* (Ibuprofen*) 200 Mg Capsule, 200 MG PO Q6 Y for PAIN, CAP 09/15/14 Allergies Allergies: Coded Allergies: No Known Drug Allergies (Verified Allergy, Mild, 12/22/16) PMhx/Soc History of Surgery: Yes (C/S X 1) Anesthesia Reaction: No Hx Neurological Disorder: Yes (MIGRAINES) Hx Respiratory Disorders: No Hx Cardiac Disorders: No Hx Psychiatric Problems: No Hx Miscellaneous Medical Probl: No Hx Alcohol Use: Yes (SOCIALLY) Hx Substance Use: No Hx Tobacco Use: No Physical Exam Vitals Vital Signs Date Time Temp Pulse Resp B/P Pulse Ox O2 Delivery O2 Flow Rate FiO2 06/03/17 11:42 98.2 71 18 136/103 99 Physical Exam Const: No acute distress Head: Atraumatic Eyes: Normal Conjunctiva ENT: Normal External Ears, Nose and Mouth. Neck: Full range of motion..~ No meningismus. Resp: Clear to auscultation bilaterally Cardio: Regular rate and rhythm, no murmurs Abd: Soft, gastric and right upper quadrant tenderness non distended. Normal bowel sounds Skin: No petechiae or rashes Back: No midline or flank tenderness Ext: No cyanosis, or edema Neur: Awake and alert Psych: Normal Mood and Affect Result Diagram: 06/03/17 1340 06/03/17 1340 Results 24 hrs Laboratory Tests Test 06/03/17 13:20 06/03/17 13:40 Urine Color YELLOW Urine Clarity CLEAR Urine pH 7.0 Urine Specific [place] 1.017 Urine Ketones NEGATIVEmg/dL Urine Nitrite NEGATIVEmg/dL Urine Bilirubin NEGATIVEmg/dL Urine Urobilinogen NEGATIVEmg/dL Urine Leukocyte Esterase NEGATIVELeu/ul Urine Hemoglobin NEGATIVEmg/dL Urine Glucose NEGATIVEmg/dL Urine Total Protein NEGATIVEmg/dl White Blood Count 7.410^3/ul Red Blood Count 4.9010^6/ul Hemoglobin 14.5g/dl Hematocrit 42.2% Mean Corpuscular Volume 86.1fl Mean Corpuscular Hemoglobin 29.6pg Mean Corpuscular Hemoglobin Concent 34.4g/dl Red Cell Distribution Width 12.4% Platelet Count 76427^3/UL Mean Platelet Volume 11.0fl Neutrophils % 61.3% Lymphocytes % 29.4% Monocytes % 6.6% Eosinophils % 1.9% Basophils % 0.4% Nucleated Red Blood Cells % 0.0/100WBC Neutrophils # 4.510^3/ul Lymphocytes # 2.210^3/ul Monocytes # 0.510^3/ul Eosinophils # 0.110^3/ul Basophils # 0.010^3/ul Nucleated Red Blood Cells # 0.010^3/ul Sodium Level 144mmol/L Potassium Level 4.4mmol/L Chloride Level 102mmol/L Carbon Dioxide Level 26mmol/L Anion Gap 20 Blood Urea Nitrogen 15mg/dl Creatinine 0.65mg/dl Glucose Level 101mg/dl Calcium Level 8.9mg/dl Total Bilirubin 0.2mg/dl Direct Bilirubin 0.00mg/dl Indirect Bilirubin 0.2mg/dl Aspartate Amino Transf (AST/SGOT) 29IU/L Alanine Aminotransferase (ALT/SGPT) 45IU/L Alkaline Phosphatase 68IU/L Total Protein 8.1g/dl Albumin 4.7g/dl Globulin 3.40g/dl Albumin/Globulin Ratio 1.38 Lipase 84U/L Current Medications Medications (Trade) Dose Ordered Sig/Richard Route PRN Reason Start Time Stop Time Status Last Admin Dose Admin Morphine Sulfate (morphine) 4 mg ONCE STAT IV 06/03/17 13:02 06/03/17 13:03 DC 06/03/17 13:48 Ondansetron HCl (Zofran Inj) 4 mg ONCE STAT IV 06/03/17 13:02 06/03/17 13:03 DC 06/03/17 13:48 Famotidine (Pepcid Iv) 20 mg ONCE STAT IV 06/03/17 13:02 06/03/17 13:03 DC 06/03/17 13:48 Miscellaneous Medication 40 ml 40 ml ONCE ONCE PO 06/03/17 13:30 06/03/17 13:31 DC 06/03/17 13:48 Sodium Chloride (NS) 500 ml @ 500 mls/hr Q1H ONCE IV 06/03/17 15:00 06/03/17 15:59 DIAGNOSTIC IMAGING REPORT Patient: IZABELLA ELENA : 1985 Age: 31 Sex: F MR #: [id number] DOS: 06/03/17 1302 Ordering MD: FÉLIX BERMUDEZ PA-C Location: [facility] Room/Bed: PROCEDURE: Right Upper Quadrant Ultrasound. CLINICAL INDICATION: Abdominal Pain TECHNIQUE: Multiple real-time images were acquired of the patient's right upper quadrant abdomen and retroperitoneum utilizing a high resolution transducer. COMPARISON: None FINDINGS: The liver measures 16.8 cm, and demonstrates mildly increased echogenicity. The main portal vein is patent with proper directional flow. There is no intrahepatic biliary ductal dilatation. The extrahepatic common bile duct measures 5 mm. There is cholelithiasis. There is no gallbladder wall thickening or pericholecystic fluid. The visualized pancreas is unremarkable. The right kidney measures 11.7 cm and demonstrates normal echotexture. There is no right renal calculus or hydronephrosis. The visualized abdominal aorta and IVC are grossly unremarkable. IMPRESSION: Mild hepatomegaly with mild fatty infiltration. Cholelithiasis without evidence of acute cholecystitis. Normal CBD. RPTAT: EE Physician Tawana Date Time Electronically viewed and signed by Physician Tawana on 06/03/2017 13:43 RA/ CC: FÉLIX BERMUDEZ PA-C Procedures/[facility] This a 31-year-old female presents the emergency department today complaining of abdominal pain for the past 10 days and worse over the past couple of days. Upon review of patient's medical records patient had a endoscopy in April that showed gastritis and esophagitis. Today on physical exam patient had epigastric and right upper quadrant tenderness. Given this I did obtain laboratory workup as well as imaging. Laboratory workup shows no elevated white blood cell count. She is not anemic. Platelets are within normal limits. Electrolytes are within normal limits. Glucose within normal limits. Bilirubin is within normal limits. Liver enzymes are within normal limits. Lipase were normal limits. UA is negative for infection. Urine test is negative for infection Right upper quadrant ultrasound shows mild hepatomegaly with mild fatty infiltration. She has cholelithiasis without evidence of acute cholecystitis. There is normal common bile duct. There is no gallbladder wall thickening or pericholecystic fluid. This is likely the source of the patient's right upper quadrant pain. Symptoms at this time is consistent with biliary colic and gallstones. She was given morphine, Zofran, Pepcid, GI cocktail here in the emergency department. States she did not like it with a morphine felt and states that she felt dizzy. Patient was given half liter of IV fluids. She was discharged home with [facility] [place]. She may continue taking the omeprazole as prescribed for her gastritis and esophagitis. Patient does have an appoint with her primary care doctor tomorrow. She was also instructed to follow back up with Dr. Hickey who did her endoscopy. At this time the patient is stable for discharge and outpatient management. Patient should follow up with their PCP in the next 1-2 days. They may return to the emergency department sooner for any persistent or worsening of symptoms. Patient understood and agreed with the plan. Departure Diagnosis: Primary Impression: Epigastric pain Additional Impression: Biliary colic Condition: FÉLIX Singh PA-C Jun 03, 2017 13:57
[2017-06-03 14:08] LABS: ALBUMIN 4.7 g/dl (3.3-4.9); ALBUMIN/GLOBULIN RATIO 1.38; BILIRUBIN,INDIRECT 0.2 mg/dl (0-1.1); BILIRUBIN,TOTAL 0.2 mg/dl (0.2-1.3); CALCIUM 8.9 mg/dl (8.4-10.2); CREATININE 0.65 mg/dl (0.44-1.00); POTASSIUM 4.4 mmol/L (3.5-5.1); TOTAL PROTEIN 8.1 g/dl (6.1-8.1)
[2017-06-03] MEDS ORDERED: SOD CHLORIDE 0.9% 500 ML IV ONE (15:00)
[2017-06-03] MEDS ORDERED: HYDR-906 PO (15:10)
[2017-06-03] MEDS ORDERED: ONDA4TAB8 PO (15:14)
[2017-06-03 16:23] VITALS: BP 120/71; PULSE 72; RESP 16; TEMP 98.3
== END 2017-06-03 16:25 | disposition home or self-care (01) ==
LOC: FTE 11:37
DX: R10.13 Epigastric pain (principal); K80.50 Calculus of bile duct without cholangitis or cholecystitis without obstruction
CPT/HCPCS: 36415; 76705; 80053; 81003; 83690; 85025; 96374; 96375; J2270; J2405; Z7502; Z7610

== ENCOUNTER 2017-06-04 12:35 | Emergency (ER) | payer OTHER ==
[~2017-06-04] VITALS: Ht 160 cm; Wt 86.0 kg
[~2017-06-04 12:35] MED LIST changes: +HYDR-906 PO; +ONDA4TAB8 PO
[2017-06-04 12:40] VITALS: Ht 160 cm; Wt 86.0 kg
[2017-06-04] MEDS ORDERED: IBUPROFEN 600 MG TAB PO ONE (13:30)
[2017-06-04] MEDS ORDERED: HYDROCODONE/APAP (5/325) TAB PO ONE (13:30)
--- NOTE | 2017-06-04 13:55 | RADRPT ---
PROCEDURE: US Pelvis. CLINICAL INDICATION: Pelvic pain TECHNIQUE: Multiple sonographic images of the pelvis were obtained utilizing a transabdominal and endovaginal technique. The images were reviewed on a PACS workstation. COMPARISON: None. FINDINGS: The uterus is visualized and measures 8.3 x 4.2 x 5.8 cm in size. The uterus is homogeneous in echog enicity. No uterine mass is seen. The endometrial echo complex is normal and measures 3.0 mm. There is no evidence for free fluid. The right ovary has a normal echotexture and measures 2.9 x 1.6 x 2. 3 cm. The left ovary has a normal echotexture and measures 2.6 x 2.2 x 2.3 cm. No adnexal masses a re noted. IMPRESSION: Unremarkable pelvic ultrasound. RPTAT: HPNM Physician Richie Date Time Electronically viewed and signed by Physician Richie on 06/04/2017 13:55 /
[2017-06-04 14:25] LABS: URINE BLOOD (Dip) POC Trace-lysed (NEGATIVE)
--- NOTE | 2017-06-04 14:56 | RADRPT ---
PROCEDURE: CT Abdomen and Pelvis without contrast. CLINICAL INDICATION: Right lower quadrant pain. TECHNIQUE: CT scan of the abdomen and pelvis without contrast was performed on a multi-slice CT [facility] without intravenous contrast. Coronal and sagittal reformatted images were obtained from the axial source images. Images were reviewed on a high-resolution PACS workstation. One or more of the following does reduction techniques were used: Automated exposure control; adjustment of the mA an d/or kV according to patient size; use of the aorta of reconstruction technique. The total exam CTD I equals 18.6 mGy and the total exam DLP equals and 1139.5 mGy-cm. COMPARISON: Abdominal ultrasound 06/03/2017. Pelvic ultrasound 06/04/2017 FINDINGS: There are mild dependent changes in the posterior lower lobe. The lung bases are otherwise clear. Heart size is normal, and there is no evidence of pericardial thickening or effusion. There is decreased attenuation of the hepatic parenchyma consistent with fatty infiltration. The li haylie, spleen, and pancreas are otherwise normal given the limitations of a noncontrast CT examination . The gallbladder is packed with gallstones. There is no pericholecystic inflammatory change to lemus ggest cholecystitis. The adrenal glands are normal. The kidneys without renal calculus or hydronephrosis. The aorta is of normal caliber. There is no retroperitoneal lymph node enlargment. There is no evidence of large or small bowel obstruction. A normal appendix is identified.. No fr ee fluid or fluid collections are identified. No inflammatory changes are seen. There is a tiny per iumbilical hernia containing only fat. The uterus is present. No enlarged pelvic sidewall lymph nodes are seen. The bladder is decompresse d and collapsed. No free fluid is identified. The inguinal regions are unremarkable. The bones are intact. IMPRESSION: 1. No CT evidence of acute intra-abdominal or pelvic process. Normal appendix. 2. Fatty infiltration of the liver. 3. Cholelithiasis without CT evidence of cholecystitis. 4. Tiny periumbilical hernia containing only fat. RPTAT: KK .Marco A Greenberg MD, MD Date Time Electronically viewed and signed by .Marco A Greenberg MD, on 06/04/2017 14:55 .B/
--- NOTE | 2017-06-08 06:19 | ERD ---
ER Documentation Chief Complaint Date/Time DATE: 06/08/17 TIME: 06:13 Chief Complaint right lower abdominal pain x 2 days seen here yesterday HPI This is a 31-year-old female with past medical history for gastritis and esophagitis presenting to the emergency department with right lower quadrant abdominal pain 2 days. Patient was seen here yesterday with epigastric pain and wa discharged home to follow-up with primary care provider. Patient states today she went to her primary care providers and began having right lower quadrant abdominal pain. At that time her primary care provider sent her back to the ER for evaluation of right lower quadrant pain and rule out of appendicitis. No nausea or vomiting. No fevers or chills. Patient rating pain 7/10 to right lower quadrant of abdomen. Pain does not radiate. No dysuria, hematuria, urinary frequency or urinary urgency. Patient was given pain medications at discharge yesterday however she has not started these medications. ROS All systems reviewed and are negative except as per history of present illness. Medications Home Meds Active Scripts Ondansetron Hcl* (Zofran*) 4 Mg Tablet, 4 MG PO Q6H for NAUSEA AND/OR VOMITING, #30 TAB Prov:FÉLIX BERMUDEZ PA-C 06/03/17 Hydrocodone/Acetaminophen (Telford 5-325 Tablet) 1 Each Tablet, 1 TAB PO Q6H Y for PAIN, #12 TAB Prov:FÉLIX BERMUDEZ PA-C 06/03/17 Ibuprofen* (Motrin*) 800 Mg Tab, 800 MG PO Q6H Y for PAIN AND OR ELEVATED TEMP, #30 TAB Prov:GERMAN MARC 05/22/17 Acetaminophen* (Tylophen*) 500 Mg Capsule, 1 CAP PO Q6H Y for PAIN AND OR ELEVATED TEMP, #20 CAP Prov:GERMAN MARC 05/22/17 Ondansetron (Ondansetron Odt) 4 Mg Tab.rapdis, 4 MG PO Q8 Y for NAUSEA AND/OR VOMITING, #20 TAB Prov:GERMAN MARC 05/22/17 Cephalexin* (Keflex*) 500 Mg Capsule, 500 MG PO QID for 5 Days, CAP Prov:GERMAN MARC 05/22/17 Acetamin/Butalbital/Caffeine* (Fioricet*) [id number] Tab, 1 TAB PO Q6H Y for PAIN, #15 TAB Prov:AZULALEISHA Ramirez PA-C 04/16/17 Ondansetron (Ondansetron Odt) 8 Mg Tab.rapdis, 8 MG PO Q6H Y for NAUSEA AND/OR VOMITING, #10 TAB Prov:AZULALEISHA-C 04/16/17 Ibuprofen* (Motrin*) 800 Mg Tab, 800 MG PO Q8 Y for PAIN AND OR ELEVATED TEMP, # 30 TAB Prov:ADENIKE BRANCH [employer] AGENT 05/29/16 Reported Medications [Vit.d-3 Daily] No Conflict Check 04/15/17 Omeprazole* (Omeprazole*) 20 Mg Capsule.dr, 20 MG PO DAILY, #30 CAP 04/15/17 Ibuprofen* (Ibuprofen*) 200 Mg Capsule, 200 MG PO Q6 Y for PAIN, CAP 09/15/14 Allergies Allergies: Coded Allergies: No Known Drug Allergies (Verified Allergy, Mild, 12/22/16) PMhx/Soc History of Surgery: Yes (C/S X 1) Anesthesia Reaction: No Hx Neurological Disorder: Yes (MIGRAINES) Hx Respiratory Disorders: No Hx Cardiac Disorders: No Hx Psychiatric Problems: No Hx Miscellaneous Medical Probl: No Hx Alcohol Use: Yes (SOCIALLY) Hx Substance Use: No Hx Tobacco Use: No Smoking Status: Never smoker Physical Exam Vitals Vital Signs Date Time Temp Pulse Resp B/P Pulse Ox O2 Delivery O2 Flow Rate FiO2 06/04/17 12:40 98.3 68 18 116/65 98 Physical Exam Const: No acute distress, alert Head: Atraumatic Eyes: Normal Conjunctiva ENT: Normal External Ears, Nose and Mouth. Neck: Full range of motion..~ No meningismus. Resp: Clear to auscultation bilaterally. No wheezing, rhonchi or crackles. Cardio: Regular rate and rhythm, no murmurs Abd: Soft, non distended. Normal bowel sounds, right lower quadrant tenderness. No rebound tenderness. Negative Elias sign. Skin: No petechiae or rashes Back: No midline or flank tenderness. No CVA tenderness Ext: No cyanosis, or edema Neur: Awake and alert Psych: Normal Mood and Affect Results 24 hrs Laboratory Tests Test 06/04/17 14:31 Bedside Urine pH (LAB) 5.5 Bedside Urine Protein (LAB) Negative Bedside Urine Glucose (UA) Negative Bedside Urine Ketones (LAB) Negative Bedside Urine Blood Trace-lysed Bedside Urine Nitrite (LAB) Negative Bedside Urine Leukocyte Esterase (L Trace Current Medications Medications (Trade) Dose Ordered Sig/Richard Route PRN Reason Start Time Stop Time Status Last Admin Dose Admin Acetaminophen/ Hydrocodone Bitart (Telford (5/325)) 1 tab ONCE ONCE PO 06/04/17 13:30 06/04/17 13:31 DC 06/04/17 13:14 Ibuprofen (Motrin) 600 mg ONCE ONCE PO 06/04/17 13:30 06/04/17 13:31 DC 06/04/17 13:13 Procedures/MDM [place] [address] Radiology Main Line: [phone] DIAGNOSTIC IMAGING REPORT Patient: IZABELLA ELENA : 1985 Age: 31 Sex: F MR #: [id number] DOS: 06/04/17 0000 Ordering MD: CANDY RIDLEY NP Location: [facility] Room/Bed: PROCEDURE: US Pelvis. CLINICAL INDICATION: Pelvic pain TECHNIQUE: Multiple sonographic images of the pelvis were obtained utilizing a transabdominal and endovaginal technique. The images were reviewed on a PACS workstation. COMPARISON: None. FINDINGS: The uterus is visualized and measures 8.3 x 4.2 x 5.8 cm in size. The uterus is homogeneous in echogenicity. No uterine mass is seen. The endometrial echo complex is normal and measures 3.0 mm. There is no evidence for free fluid. The right ovary has a normal echotexture and measures 2.9 x 1.6 x 2.3 cm. The left ovary has a normal echotexture and measures 2.6 x 2.2 x 2.3 cm. No adnexal masses are noted. IMPRESSION: Unremarkable pelvic ultrasound. [place] [address] Radiology Main Line: [phone] DIAGNOSTIC IMAGING REPORT Patient: IZABELLA ELENA : 1985 Age: 31 Sex: F MR #: [id number] DOS: 06/04/17 1410 Ordering MD: CANDY RIDLEY NP Location: [facility] Room/Bed: PROCEDURE: CT Abdomen and Pelvis without contrast. CLINICAL INDICATION: Right lower quadrant pain. TECHNIQUE: CT scan of the abdomen and pelvis without contrast was performed on a multi-slice CT scanner without intravenous contrast. Coronal and sagittal reformatted images were obtained from the axial source images. Images were reviewed on a high-resolution PACS workstation. One or more of the following does reduction techniques were used: Automated exposure control; adjustment of the mA and/or kV according to patient size; use of the aorta of reconstruction technique. The total exam CTDI equals 18.6 mGy and the total exam DLP equals and 1139.5 mGy-cm. COMPARISON: Abdominal ultrasound 06/03/2017. Pelvic ultrasound 06/04/2017 FINDINGS: There are mild dependent changes in the posterior lower lobe. The lung bases are otherwise clear. Heart size is normal, and there is no evidence of pericardial thickening or effusion. There is decreased attenuation of the hepatic parenchyma consistent with fatty infiltration. The liver, spleen, and pancreas are otherwise normal given the limitations of a noncontrast CT examination. The gallbladder is packed with gallstones. There is no pericholecystic inflammatory change to suggest cholecystitis. The adrenal glands are normal. The kidneys without renal calculus or hydronephrosis. The aorta is of normal caliber. There is no retroperitoneal lymph node enlargment. There is no evidence of large or small bowel obstruction. A normal appendix is identified.. No free fluid or fluid collections are identified. No inflammatory changes are seen. There is a tiny periumbilical hernia containing only fat. The uterus is present. No enlarged pelvic sidewall lymph nodes are seen. The bladder is decompressed and collapsed. No free fluid is identified. The inguinal regions are unremarkable. The bones are intact. IMPRESSION: 1. No CT evidence of acute intra-abdominal or pelvic process. Normal appendix. 2. Fatty infiltration of the liver. 3. Cholelithiasis without CT evidence of cholecystitis. 4. Tiny periumbilical hernia containing only fat. MDM: This is a 31-year-old female presenting to the emergency department with right lower quadrant abdominal pain 2 days. Patient was sent by her primary care provider to rule out appendicitis. Patient given ibuprofen and Telford on the ED. patient was seen here yesterday with epigastric pain and labs and urine were collected. Labs from yesterday show no significant anemia, infection or electrode imbalance. Urine from today is negative for infection. Pelvic ultrasound reviewed by radiologist as unremarkable. Upon reassessment, patient states pain has improved however since this is patient's third visit with physician a CT abdomen and pelvis was ordered. Discussed this with Dr. Mistry and he agrees with my plan of care. CT abdomen and pelvis reviewed by radiologist as no CT evidence of acute intra- abdominal or pelvic process. Normal appendix. Fatty infiltration of the liver. Cholelithiasis without CT evidence of cholecystitis. Tiny periumbilical hernia containing only fat. Differential diagnosis includes but not limited to acute appendicitis, diverticulitis, diverticulosis, bowel obstruction, constipation, infectious colitis, irritable bowel syndrome, inflammatory bowel disease, viral gastroenteritis, abdominal aortic aneurysm, food intolerance, celiac disease, UTI, pyelonephritis, nephrolithiasis, acute urinary retention or colorectal cancer. I doubt any emergent conditions such as appendicitis, diverticulitis, bowel obstruction, abdominal aortic aneurysm at this time due to normal vital signs and normal lab results. Patient is appropriate for outpatient management. Instructed patient to follow- up with primary care provider in the next 2-3 days for reassessment and additional management. Return to ED for any high fever, chest pain, difficulty breathing, shortness breath, wheezing, vomiting, diarrhea, abdominal pain or any new or worsening symptoms. Patient verbalizes understanding. All questions answered at discharge. Departure Diagnosis: Primary Impression: Abdominal pain Abdominal location: right lower quadrant Qualified Code: R10.31 - Right lower quadrant abdominal pain Condition: Stable Patient Instructions: Abdominal Pain, Unknown Cause, (Female) Referrals: FELICIA EDMOND MD (PCP) [facility] Usted se spring hecho un examen mdico de control que le indica que no est en jayda condicin que requiera tratamiento urgente en el Departamento de Emergencia. Un estudio ms profundo y el tratamiento de lemus condicin pueden esperar sin ningn riesgo hasta que usted sea atendida/o en el consultorio de lemus mdico o jayda cl eduardo. Es responsabilidad suya arreglar jayda stefano para el seguimiento del rojas. MANEJO DE CONDICIONES NO URGENTES EN EL FUTURO 1) Si usted tiene un mdico de atencin primaria: Usted debera llamar a lemus mdico de atencin primaria antes de venir al departamento de emergencia. Despus de las horas de consultorio, lmeus doctor o lemus asociado/a est disponible por telfono. El mdico o enfermero de ana en el servicio telefnico puede asesorarle por diandra medio para atender el problema, o rojas contrario se puede programar jayda stefano. 2) Si usted no tiene un mdico de atencin primaria: Llame al mdico o clnica de referencia que aparece abajo beverley las horas de consultorio para hacer jayda stefano para que le vean. CLINICAS: [facility] [phone] [facility] [phone] [facility] [phone] [facility] [phone] [address] [facility] [place] [address] [phone] [facility] [phone] [facility]. [facility] Usted se spring hecho un examen mdico de control que le indica que no est en jayda condicin que requiera tratamiento urgente en el Departamento de Emergencia. Un estudio ms profundo y el tratamiento de lemus condicin pueden esperar sin ningn riesgo hasta que usted sea atendida/o en el consultorio de lemus mdico o jayda cl eduardo. Es responsabilidad suya arreglar jayda stefano para el seguimiento del rojas. MANEJO DE CONDICIONES NO URGENTES EN EL FUTURO 1) Si usted tiene un mdico de atencin primaria: Usted debera llamar a lemus mdico de atencin primaria antes de venir al departamento de emergencia. Despus de las horas de consultorio, lemus doctor o lemus asociado/a est disponible por telfono. El mdico o enfermero de ana en el servicio telefnico puede asesorarle por diandra medio para atender el problema, o rojas contrario se puede programar jayda stefano. 2) Si usted no tiene un mdico de atencin primaria: Llame al mdico o condado institucions de referencia que aparece abajo beverley las horas de consultorio para hacer jayda stefano para que le vean. SI USTED NO PUEDE PAGAR PARA SARITA UN MEDICO puede ir a: [facility] [address] [place] [address] [facility] [address] [place] [address] [facility] [address] [place] [address] [facility] [facility] [address] [place], [place] [id number] Additional Instructions: Llame al doctor MAANA y katty jayda STEFANO PARA DENTRO DE 2-3 MONZON.Dgale a la secretaria que nosotros le instruimos hacer esta stefano.Avise o llame si lemus condicin se empeora antes de la stefano. Regresa aqui si peor o no mejor. Regresar a ED por fiebre tamar, dolor en el pecho, dificultad para respirar, respiracin entrecortada, sibilancias, vmitos, diarrea, dolor abdominal o cualquier sntoma nuevo o que empeora. CANDY RIDLEY NP Jun 08, 2017 06:19
[2017-06-08 16:10] LABS: URINE BLOOD (Dip) POC Trace-lysed (NEGATIVE)
== END 2017-06-04 20:56 | disposition home or self-care (01) ==
LOC: FTE 12:35
DX: R10.31 Right lower quadrant pain (principal); R10.2 Pelvic and perineal pain
CPT/HCPCS: 74176; 76830; 76856; 81003; Z7502

== ENCOUNTER 2017-07-12 11:14 | Observation (INO) | payer OTHER ==
[2017-07-12] VITALS (10 sets, daily range): BP systolic 104–131; BP diastolic 55–90; PULSE 60–89; RESP 14–18; Ht 162.6 cm; Wt 83.7 kg
[~2017-07-12] VITALS: Ht 162.6 cm; Wt 83.7 kg
[2017-07-12] MEDS: SOD CHLORIDE 0.9% 1,000 ML IV SCH ×2 (07:00→20:20)
[~2017-07-12 11:14] MED LIST changes: +CEFAZOLIN 2 GM/50 ML (PMX) 50 ML IVPB ONE
[2017-07-12] MEDS ORDERED: BUPIVACAINE 0.25% (MPF) 30 ML INJ ONE (15:47)
[2017-07-12] MEDS ORDERED: PROPOFOL 20 ML ONE (16:07)
[2017-07-12] MEDS ORDERED: LIDOCAINE 2% (SDV) 5 ML INJ ONE (16:07)
[2017-07-12] MEDS ORDERED: NEOSTIGMINE 3 MG/3 ML SYRINGE ONE ×2 (16:07→16:25)
[2017-07-12] MEDS ORDERED: MEPERIDINE 100 MG INJ ONE (16:07)
[2017-07-12] MEDS ORDERED: GLYCOPYRROLATE 0.4 MG INJ ONE ×2 (16:07→16:25)
[2017-07-12] MEDS ORDERED: ROCURONIUM 50 MG INJ ONE (16:07)
[2017-07-12] MEDS ORDERED: SUCCINYLCHOLINE CHLORIDE 100 MG/5 ML SYG IV ONE (16:07)
[2017-07-12] MEDS ORDERED: CEFAZOLIN 1 GM INJ ONE (16:09)
[2017-07-12] MEDS ORDERED: ONDANSETRON 4 MG INJ ONE (16:09)
[2017-07-12] MEDS ORDERED: METOCLOPRAMIDE 10 MG INJ ONE (16:09)
[2017-07-12] MEDS ORDERED: OXYCODONE/ACETAMINOPHEN (5/325) TAB PO PRN ×2 (16:30)
[2017-07-12] MEDS ORDERED: DIPHENHYDRAMINE 50 MG INJ IV PRN (16:30)
[2017-07-12] MEDS ORDERED: LABETALOL HCL 20MG INJ IV PRN (16:30)
[2017-07-12] MEDS ORDERED: hydrALAzine 20 MG INJ IV PRN ×2 (16:30→23:00)
[2017-07-12] MEDS ORDERED: METOCLOPRAMIDE 10 MG INJ IV PRN (16:30)
[2017-07-12] MEDS ORDERED: ONDANSETRON 4 MG INJ IV PRN (16:30)
[2017-07-12] MEDS ORDERED: FENTAnyl 50 MCG/ML VIAL IV PRN ×2 (16:30)
[2017-07-12] MEDS ORDERED: MEPERIDINE 25 MG INJ IV PRN (16:30)
[2017-07-12] MEDS ORDERED: EPHEDrine SULFATE 50 MG/5 ML SYG IV PRN (16:30)
[2017-07-12] MEDS ORDERED: HYDROmorphONE (0.2 MG/ML) 10ML SYG IV PRN ×3 (16:30)
[2017-07-12] MEDS ORDERED: MIDAZOLAM 1 MG/ML 2 ML INJ IV PRN (16:30)
--- NOTE | 2017-07-12 16:52 | SIPON ---
Date/Time of Note Date/Time of Note DATE: 07/12/17 TIME: 16:50 Operative Report Preoperative Diagnosis symptomatic gallstones and liver steatosis Postoperative Diagnosis same Operation/Procedure Performed laparoscopic cholecystectomy wedge liver biopsy Surgeon: Dwight ALDRIDGE Co-Surgeon: TADEO GOLDSTEIN MD Anesthesia Type: general Estimated Blood Loss: 0 - 10 ml's Specimens gallbladder and liver wedge biopsy Grafts/Implants: none Complications: no Dwight ALDRIDGE Jul 12, 2017 16:52
[2017-07-12] MEDS ORDERED: HYDROCODONE/APAP (5/325) TAB PO ONE (17:00)
[2017-07-12] MEDS: FENTAnyl 50 MCG/ML VIAL IV PRN ×4 (17:14→17:36)
[2017-07-12] MEDS ORDERED: KETOROLAC 30 MG INJ IV PRN (23:00)
[2017-07-12] MEDS ORDERED: ACETAMINOPHEN 1000MG/100ML IV 100 ML IVPB PRN (23:00)
[2017-07-12] MEDS: ONDANSETRON 4 MG INJ IV PRN (23:13)
--- NOTE | 2017-07-12 23:20 | HP ---
Date/Time of Note Date/Time of Note DATE: 07/12/17 TIME: 22:45 Assessment/Plan VTE Prophylaxis VTE Prophylaxis Intervention: SCD's Lines/Catheters IV Catheter Type (from Nrsg): Peripheral IV Assessment/Plan Assessment/Plan -symptomatic gallstones and liver steatosis - SP laparoscopic cholecystectomy - PER SURGERY - Admit to MI - IVF, Protonix, Zofran. IV Tylenol, Toradol SCD - Incentive spirometer - NPO except Ice chips - SP wedge liver biopsy DW Dr Baum HPI/ROS Admit Date/Time Admit Date/Time Jul 12, 2017 at 20:40 ROS This is a 32 years old female patient has c/o abdominal pain due to symptomatic gallstones and liver steatosis. She was admitted SP laparoscopic cholecystectomy and wedge liver biopsy done by Dr Hatfield today. Patient has post op pain and nausea. Patient is admitted on MI under Dr Camacho for further evaluation and treatment. During assessment patient c/o surgical abdomen pain, nausea. She denies any chest pain, shortness of breath, fever, headache, dizziness, bilateral calves pain, focal weakness, numbness. Plan of care dw staff. Respiratory: no complaints Cardiovascular: no complaints Gastrointestinal: nausea, pain Genitourinary: no complaints Musculoskeletal: no complaints Skin: no complaints Neurologic: no complaints Psychological: nl mood/affect PMH/Family/Social Social History Smoking Status: Never smoker Exam/Review of Systems Vital Signs Vitals Vital Signs Date Time Temp Pulse Resp B/P Pulse Ox O2 Delivery O2 Flow Rate FiO2 07/12/17 18:45 98.9 07/12/17 17:45 76 18 128/74 95 Room Air Exam Constitutional: alert, well developed Psych: nl mood/affect Respiratory: diminished breath sounds, normal air movement Cardiovascular: nl pulses, regular rate and rhythm Gastrointestinal: other (SURGICAL ABDOMEN), soft Musculoskeletal: nl extremities to inspection Extremities: normal pulses Neurological: nl mental status, nl speech, other Medications Medications Current Medications Sodium Chloride (NS) 1,000 ml @ 75 mls/hr [id number] IV ; Start 07/12/17 at 07:00 Ondansetron HCl (Zofran Inj) 4 mg Q6H PRN IV NAUSEA AND/OR VOMITING; Start 07/12 at 22:30 ANTONETTE MURO Jul 12, 2017 22:55
[2017-07-13 02:35] VITALS: BP 114/69; RESP 20
[2017-07-13] MEDS: PANTOPRAZOLE 40 MG INJ IV SCH (05:52)
[2017-07-13 07:27] LABS: BASOPHILS % 0.1 % (0.0-2.0); EOSINOPHILS # 0.1 10^3/ul (0.0-0.5); EOSINOPHILS % 0.6 % (0.0-7.0); HEMATOCRIT 38.8 % (37.0-47.0); HEMOGLOBIN 13.1 g/dl (12.0-16.0); LYMPHOCYTES % 23.5 % (15.0-51.0); MEAN CORPUSCULAR HEMOGLOBIN 29.3 pg (29.0-33.0); MEAN CORPUSCULAR HGB CONC 33.8 g/dl (32.0-37.0); MEAN CORPUSCULAR VOLUME 86.8 fl (82.0-101.0); MEAN PLATELET VOLUME 11.6 fl (7.4-10.4); MONOCYTE # 0.6 10^3/ul (0.3-0.9); MONOCYTES % 7.2 % (0.0-11.0); NEUTROPHILS % 68.4 % (39.0-77.0); PLATELET COUNT 181 10^3/UL (140-415); RED BLOOD COUNT 4.47 10^6/ul (4.20-5.40); RED CELL DISTRIBUTION WIDTH 12.4 % (11.5-14.5); WHITE BLOOD COUNT 8.3 10^3/ul (4.8-10.8)
[2017-07-13 07:47] LABS: CALCIUM 8.3 mg/dl (8.4-10.2); CREATININE 0.61 mg/dl (0.44-1.00); POTASSIUM 3.8 mmol/L (3.5-5.1)
[2017-07-13 08:09] VITALS: BP 108/67; RESP 18
[2017-07-13] MEDS: ONDANSETRON 4 MG INJ IV PRN (09:38)
--- NOTE | 2017-07-13 09:56 | PN ---
Date/Time of Note Date/Time of Note DATE: 07/13/17 TIME: 09:55 Assessment/Plan VTE Prophylaxis VTE Prophylaxis Intervention: other Lines/Catheters IV Catheter Type (from Nrsg): Peripheral IV Assessment/Plan Chief Complaint/Hosp Course -symptomatic gallstones and liver steatosis - SP laparoscopic cholecystectomy - PER SURGERY - Admit to MS - IVF, Protonix, Zofran. IV Tylenol, Toradol SCD - Incentive spirometer - NPO except Ice chips - SP wedge liver biopsy Problems: Subjective 24 Hr Interval Summary Free Text/Dictation Patient complain of abdominal pain, nausea and vomiting Exam/Review of Systems Vital Signs Vitals Vital Signs Date Time Temp Pulse Resp B/P Pulse Ox O2 Delivery O2 Flow Rate FiO2 07/13/17 08:09 98.5 64 18 108/67 96 07/12/17 22:00 Room Air Intake and Output 07/12/17 07/12/17 07/13/17 15:00 23:00 07:00 Intake Total 600 ml Output Total 10 ml Balance 590 ml Exam Constitutional: well developed Head: atraumatic, normocephalic Neck: supple Respiratory: diminished breath sounds Cardiovascular: regular rate and rhythm Gastrointestinal: non-tender, soft Extremities: normal pulses Results Result Diagram: 07/13/17 0656 07/13/17 0656 Results 24 hrs Laboratory Tests Test 07/13/17 06:56 White Blood Count 8.3 Red Blood Count 4.47 Hemoglobin 13.1 Hematocrit 38.8 Mean Corpuscular Volume 86.8 Mean Corpuscular Hemoglobin 29.3 Mean Corpuscular Hemoglobin Concent 33.8 Red Cell Distribution Width 12.4 Platelet Count 181 Mean Platelet Volume 11.6 H Neutrophils % 68.4 Lymphocytes % 23.5 Monocytes % 7.2 Eosinophils % 0.6 Basophils % 0.1 Nucleated Red Blood Cells % 0.0 Neutrophils # (Manual) 5.7 Lymphocytes # 2.0 Monocytes # 0.6 Eosinophils # 0.1 Basophils # 0.0 Nucleated Red Blood Cells # 0.0 Sodium Level 138 Potassium Level 3.8 Chloride Level 104 Carbon Dioxide Level 26 Anion Gap 12 Blood Urea Nitrogen 12 Creatinine 0.61 Glucose Level 95 Calcium Level 8.3 L Medications Medications Current Medications Sodium Chloride (NS) 1,000 ml @ 75 mls/hr [id number] IV ; Start 07/12/17 at 07:00 Ondansetron HCl (Zofran Inj) 4 mg Q6H PRN IV NAUSEA AND/OR VOMITING Last administered on 07/13/17 09:38; Admin Dose 4 MG; Start 07/12/17 at 22:30 Hydralazine HCl 5 mg 5 mg Q6H PRN IV ELEVATED BLOOD PRESSURE; Start 07/12/17 at 23:00 Acetaminophen (Ofirmev 1000mg/ 100ml Iv) 100 ml @ 400 mls/hr Q6H PRN IVPB PAIN AND OR ELEVATED TEMP; Start 07/12/17 at 23:00 Ketorolac Tromethamine (Toradol) 30 mg Q6H PRN IV PAIN Last administered on 07/13 09:37; Admin Dose 30 MG; Start 07/12/17 at 23:00; Stop 07/15/17 at 22:59 Pantoprazole (Protonix Iv) 40 mg DAILY@06 IV Last administered on 07/13/17 05: 52; Admin Dose 40 MG; Start 07/13/17 at 06:00 MICAELA MACIAS Jul 13, 2017 09:56
[2017-07-13] MEDS: SOD CHLORIDE 0.9% 1,000 ML IV SCH ×2 (11:12→20:00)
[2017-07-13 14:25] VITALS: BP 118/71; RESP 18
[2017-07-13] MEDS ORDERED: HYDROCODONE/APAP (5/325) TAB PO PRN ×2 (16:00)
--- NOTE | 2017-07-13 16:05 | PN ---
Date/Time of Note Date/Time of Note DATE: 07/13/17 TIME: 16:01 Assessment/Plan VTE Prophylaxis VTE Prophylaxis Intervention: ambulation Lines/Catheters IV Catheter Type (from Nrsg): Peripheral IV Assessment/Plan Assessment/Plan 32-year-old female status post laparoscopic cholecystectomy and laparoscopic wedge liver resection. Was kept last night because of too much pain and nausea. Not had bowel movement or is not passing any gas. Started on full liquid and add Quitman to the pain medication regiment. And make Toradol 30 mg IV every 6 hours [id number]. Hopefully we may be able to discharge her tomorrow morning. Subjective 24 Hr Interval Summary Free Text/Dictation Complains of too much pain right upper quadrant and right lower quadrant. Been nauseous last night but since noon nausea is better His post laparoscopy cholecystectomy and wedge resection of the liver postop day #1. Also complains of upper abdominal pain after taking very deep breaths. Exam/Review of Systems Vital Signs Vitals Vital Signs Date Time Temp Pulse Resp B/P Pulse Ox O2 Delivery O2 Flow Rate FiO2 07/13/17 14:25 98.4 68 18 118/71 95 07/12/17 22:00 Room Air Intake and Output 07/12/17 07/12/17 07/13/17 15:00 23:00 07:00 Intake Total 600 ml Output Total 10 ml Balance 590 ml Exam Awake alert oriented 3. Heart regular lungs clear abdomen is slightly distended. Tenderness on pressure on the right lower quadrant and right side of the abdomen no guarding vital signs are stable. Results Result Diagram: 07/13/17 0656 07/13/17 0656 Results 24 hrs Laboratory Tests Test 07/13/17 06:56 White Blood Count 8.3 Red Blood Count 4.47 Hemoglobin 13.1 Hematocrit 38.8 Mean Corpuscular Volume 86.8 Mean Corpuscular Hemoglobin 29.3 Mean Corpuscular Hemoglobin Concent 33.8 Red Cell Distribution Width 12.4 Platelet Count 181 Mean Platelet Volume 11.6 H Neutrophils % 68.4 Lymphocytes % 23.5 Monocytes % 7.2 Eosinophils % 0.6 Basophils % 0.1 Nucleated Red Blood Cells % 0.0 Neutrophils # (Manual) 5.7 Lymphocytes # 2.0 Monocytes # 0.6 Eosinophils # 0.1 Basophils # 0.0 Nucleated Red Blood Cells # 0.0 Sodium Level 138 Potassium Level 3.8 Chloride Level 104 Carbon Dioxide Level 26 Anion Gap 12 Blood Urea Nitrogen 12 Creatinine 0.61 Glucose Level 95 Calcium Level 8.3 L Medications Medications Current Medications Ondansetron HCl (Zofran Inj) 4 mg Q6H PRN IV NAUSEA AND/OR VOMITING Last administered on 07/13/17 09:38; Admin Dose 4 MG; Start 07/12/17 at 22:30 Hydralazine HCl 5 mg 5 mg Q6H PRN IV ELEVATED BLOOD PRESSURE; Start 07/12/17 at 23:00 Acetaminophen (Ofirmev 1000mg/ 100ml Iv) 100 ml @ 400 mls/hr Q6H PRN IVPB PAIN AND OR ELEVATED TEMP; Start 07/12/17 at 23:00 Ketorolac Tromethamine (Toradol) 30 mg Q6H PRN IV PAIN Last administered on 07/13 09:37; Admin Dose 30 MG; Start 07/12/17 at 23:00; Stop 07/15/17 at 22:59 Pantoprazole 40 mg 40 mg DAILY@06 IV Last administered on 07/13/17 05:52; Admin Dose 40 MG; Start 07/13/17 at 06:00 Sodium Chloride (NS) 1,000 ml @ 100 mls/hr Q10H IV Last administered on 11:12; Admin Dose 100 MLS/HR; Start 07/13/17 at 10:00 TADEO GOLDSTEIN MD Jul 13, 2017 16:05
[2017-07-13] MEDS: KETOROLAC 30 MG INJ IV SCH (17:22)
[2017-07-13 20:00] VITALS: BP 117/66; RESP 18
[2017-07-14] MEDS: SOD CHLORIDE 0.9% 1,000 ML IV SCH ×2 (00:04→06:00)
[2017-07-14] MEDS: KETOROLAC 30 MG INJ IV SCH ×3 (00:05→12:00)
[2017-07-14 02:51] VITALS: BP 105/58; RESP 16
[2017-07-14 06:16] LABS: BASOPHILS % 0.1 % (0.0-2.0); EOSINOPHILS # 0.1 10^3/ul (0.0-0.5); EOSINOPHILS % 0.9 % (0.0-7.0); HEMATOCRIT 34.8 % (37.0-47.0); HEMOGLOBIN 11.4 g/dl (12.0-16.0); LYMPHOCYTES # 2.1 10^3/ul (0.8-2.9); LYMPHOCYTES % 26.8 % (15.0-51.0); MEAN CORPUSCULAR HEMOGLOBIN 28.4 pg (29.0-33.0); MEAN CORPUSCULAR HGB CONC 32.8 g/dl (32.0-37.0); MEAN CORPUSCULAR VOLUME 86.8 fl (82.0-101.0); MEAN PLATELET VOLUME 11.4 fl (7.4-10.4); MONOCYTE # 0.7 10^3/ul (0.3-0.9); MONOCYTES % 8.3 % (0.0-11.0); NEUTROPHILS % 63.6 % (39.0-77.0); PLATELET COUNT 163 10^3/UL (140-415); RED BLOOD COUNT 4.01 10^6/ul (4.20-5.40); RED CELL DISTRIBUTION WIDTH 12.7 % (11.5-14.5)
[2017-07-14] MEDS: PANTOPRAZOLE 40 MG INJ IV SCH (06:21)
[2017-07-14 07:35] VITALS: BP 115/77; PULSE 85; RESP 16
--- NOTE | 2017-07-14 10:50 | PN ---
Date/Time of Note Date/Time of Note DATE: 07/14/17 TIME: 10:49 Assessment/Plan VTE Prophylaxis VTE Prophylaxis Intervention: other Lines/Catheters IV Catheter Type (from Nrsg): Peripheral IV Assessment/Plan Chief Complaint/Hosp Course -symptomatic gallstones and liver steatosis - SP laparoscopic cholecystectomy - PER SURGERY - Admit to MS - IVF, Protonix, Zofran. IV Tylenol, Toradol SCD - Incentive spirometer - NPO except Ice chips - SP wedge liver biopsy Problems: Subjective 24 Hr Interval Summary Free Text/Dictation Patient has less pain but still no bowel movements though she feels that there is alot of gas Exam/Review of Systems Vital Signs Vitals Vital Signs Date Time Temp Pulse Resp B/P Pulse Ox O2 Delivery O2 Flow Rate FiO2 07/14/17 07:35 98.5 85 16 115/77 98 Room Air Intake and Output 07/13/17 07/13/17 07/14/17 15:00 23:00 07:00 Intake Total 1390 ml 1490 ml Output Total 900 ml Balance 490 ml 1490 ml Exam Constitutional: well developed Head: atraumatic, normocephalic Neck: supple Respiratory: clear to auscultation Cardiovascular: regular rate and rhythm Gastrointestinal: soft, tender Extremities: normal pulses Results Result Diagram: 07/14/17 0555 07/13/17 0656 Results 24 hrs Laboratory Tests Test 07/14/17 05:55 07/14/17 07:33 White Blood Count 8.0 Red Blood Count 4.01 L Hemoglobin 11.4 L Hematocrit 34.8 L Mean Corpuscular Volume 86.8 Mean Corpuscular Hemoglobin 28.4 L Mean Corpuscular Hemoglobin Concent 32.8 Red Cell Distribution Width 12.7 Platelet Count 163 Mean Platelet Volume 11.4 H Neutrophils % 63.6 Lymphocytes % 26.8 Monocytes % 8.3 Eosinophils % 0.9 Basophils % 0.1 Nucleated Red Blood Cells % 0.0 Neutrophils # (Manual) 5.1 Lymphocytes # 2.1 Monocytes # 0.7 Eosinophils # 0.1 Basophils # 0.0 Nucleated Red Blood Cells # 0.0 Lab Scanned Report LAB Medications Medications Current Medications Ondansetron HCl (Zofran Inj) 4 mg Q6H PRN IV NAUSEA AND/OR VOMITING Last administered on 07/13/17t 09:38; Admin Dose 4 MG; Start 07/12/17 at 22:30 Hydralazine HCl 5 mg 5 mg Q6H PRN IV ELEVATED BLOOD PRESSURE; Start 07/12/17 at 23:00 Acetaminophen (Ofirmev 1000mg/ 100ml Iv) 100 ml @ 400 mls/hr Q6H PRN IVPB PAIN AND OR ELEVATED TEMP; Start 07/12/17 at 23:00 Pantoprazole 40 mg 40 mg DAILY@06 IV Last administered on 07/14/17 06:21; Admin Dose 40 MG; Start 07/13/17 at 06:00 Sodium Chloride (NS) 1,000 ml @ 100 mls/hr Q10H IV Last administered on 00:04; Admin Dose 100 MLS/HR; Start 07/13/17 at 10:00 Ketorolac Tromethamine (Toradol) 30 mg Q6 IV Last administered on 07/14/17 06: 21; Admin Dose 30 MG; Start 07/13/17 at 17:00; Stop 07/16/17 at 16:59 Acetaminophen/ Hydrocodone Bitart ([place] (5/325)) 1 tab Q4H PRN PO MODERATE PAIN 4-6; Start 07/13/17 at 16:00 Acetaminophen/ Hydrocodone Bitart ([place] (5/325)) 2 tab Q4H PRN PO SEVERE PAIN 7-9; Start 07/13/17 at 16:00 MICAELA MACIAS Jul 14, 2017 10:50
--- NOTE | 2017-07-14 12:18 | PN ---
Date/Time of Note Date/Time of Note DATE: 07/14/17 TIME: 12:15 Assessment/Plan VTE Prophylaxis VTE Prophylaxis Intervention: ambulation Lines/Catheters IV Catheter Type (from Nrsg): Peripheral IV Assessment/Plan Assessment/Plan Stop day #1 status post laparoscopic cholecystectomy. Patient had nausea and too much pain yesterday so we had to keep her overnight today that feels and looks much better vital signs stable has been walking around has been passing gas so we are going to advance her diet and discharge the patient in the afternoon to be followed by Dr. Perkins's office patient to call and make an appointment. Prescription for pain medication tramadol was written. Subjective 24 Hr Interval Summary Free Text/Dictation Feels much better has been passing gas. Postop day #1 status post laparoscopic cholecystectomy. Exam/Review of Systems Vital Signs Vitals Vital Signs Date Time Temp Pulse Resp B/P Pulse Ox O2 Delivery O2 Flow Rate FiO2 07/14/17 07:35 98.5 85 16 115/77 98 Room Air Intake and Output 07/13/17 07/13/17 07/14/17 15:00 23:00 07:00 Intake Total 1390 ml 1490 ml Output Total 900 ml Balance 490 ml 1490 ml Exam Vital signs stable WBC 8200. Will advance diet. Abdomen is soft. Results Result Diagram: 07/14/17 0555 07/13/17 0656 Results 24 hrs Laboratory Tests Test 07/14/17 05:55 07/14/17 07:33 White Blood Count 8.0 Red Blood Count 4.01 L Hemoglobin 11.4 L Hematocrit 34.8 L Mean Corpuscular Volume 86.8 Mean Corpuscular Hemoglobin 28.4 L Mean Corpuscular Hemoglobin Concent 32.8 Red Cell Distribution Width 12.7 Platelet Count 163 Mean Platelet Volume 11.4 H Neutrophils % 63.6 Lymphocytes % 26.8 Monocytes % 8.3 Eosinophils % 0.9 Basophils % 0.1 Nucleated Red Blood Cells % 0.0 Neutrophils # (Manual) 5.1 Lymphocytes # 2.1 Monocytes # 0.7 Eosinophils # 0.1 Basophils # 0.0 Nucleated Red Blood Cells # 0.0 Lab Scanned Report LAB Medications Medications Current Medications Ondansetron HCl (Zofran Inj) 4 mg Q6H PRN IV NAUSEA AND/OR VOMITING Last administered on 07/13/17t 09:38; Admin Dose 4 MG; Start 07/12/17 at 22:30 Hydralazine HCl 5 mg 5 mg Q6H PRN IV ELEVATED BLOOD PRESSURE; Start 07/12/17 at 23:00 Acetaminophen (Ofirmev 1000mg/ 100ml Iv) 100 ml @ 400 mls/hr Q6H PRN IVPB PAIN AND OR ELEVATED TEMP; Start 07/12/17 at 23:00 Pantoprazole 40 mg 40 mg DAILY@06 IV Last administered on 07/14/17 06:21; Admin Dose 40 MG; Start 07/13/17 at 06:00 Sodium Chloride (NS) 1,000 ml @ 100 mls/hr Q10H IV Last administered on 00:04; Admin Dose 100 MLS/HR; Start 07/13/17 at 10:00 Ketorolac Tromethamine (Toradol) 30 mg Q6 IV Last administered on 07/14/17 06: 21; Admin Dose 30 MG; Start 07/13/17 at 17:00; Stop 07/16/17 at 16:59 Acetaminophen/ Hydrocodone Bitart ([place] (5/325)) 1 tab Q4H PRN PO MODERATE PAIN 4-6; Start 07/13/17 at 16:00 Acetaminophen/ Hydrocodone Bitart ([place] (5/325)) 2 tab Q4H PRN PO SEVERE PAIN 7-9; Start 07/13/17 at 16:00 TADEO GOLDSTEIN MD Jul 14, 2017 12:18
[2017-07-14 14:55] VITALS: BP 121/70; PULSE 83; RESP 18
--- NOTE | 2017-07-16 05:51 | OPR ---
DATE OF OPERATION: 07/13/2017 INDICATION: This is a 33-year-old female with symptomatic gallstones and liver steatosis. She requested excision of her gallbladder and additionally she requested a liver biopsy to see the status of her steatosis. Risks, alternatives, benefits, and personnel all were discussed with the patient. Patient expressed understanding and consented to the operation. PREOPERATIVE DIAGNOSIS: Symptomatic gallstones and liver steatosis. POSTOPERATIVE DIAGNOSIS: Symptomatic gallstones and liver steatosis. OPERATION PERFORMED: 1. Laparoscopic cholecystectomy. 2. Wedge liver biopsy, CPT code 57676. 3. Therapeutic injection with subcutaneous Marcaine, CPT code 66080. SURGEON: Ty Hatfield MD SPECIMENS: Gallbladder and wedge liver biopsy. COMPLICATIONS: None. ANESTHESIA: General. OPERATIVE PROCEDURE: Patient was taken to the OR, prepped and draped in the usual sterile fashion. Surgical timeout was performed. IV antibiotics were given. Infraumbilical incision was made transversely with a 15 blade. Dissection cautery was carried down to the fascia, which was grasped with Kochers and divided with curved Dye scissors. An 0 Vicryl U stitch was placed into the fascia. Balloon and trocar were introduced. Pneumoperitoneum was established. Midepigastric 12 mm trochar was placed under direct visualization. Right upper quadrant upper flank 5 mm optical trocar was placed under direct visualization. Upon initial inspection, there was some adhesions to the gallbladder which were taken down bluntly. The gallbladder was grasped in an outward and lateral manner at the fundus. The cautery was used to start initial dissection laterally. This allowed visualization of the cystic duct. The critical view was established. The cystic duct was divided with 3 clips proximal and, due to thickened tissue distally, the cystic duct was divided with 35 mm [place] vascular stapler. The cystic artery was divided with 3 clips proximal and one clip distal. The gallbladder was taken off the gallbladder bed. The gallbladder was retrieved using an Endo Catch bag. The gallbladder bed was hemostatic. Upon further inspection of the liver, there was some evidence of steatosis. A wedge liver biopsy was performed between 5 and 6 with cautery scissors. This biopsy specimen was retracted through the midepigastric port. Hemostasis was established. Ports removed under direct visualization. The 0 Vicryl U stitch was tied down. The skin was closed using skin andree. Therapeutic subcutaneous Marcaine was injected throughout the incision sites. Dictated By: Stephane Serrano /fnt/bjc /Document#: [id number] MTDD
== END 2017-07-14 17:10 | disposition home or self-care (01) ==
LOC: SDS 11:14 → MS2 20:40
PROVIDERS: ADMIT Internal Medicine; ATTEND Surgery
DX: K80.10 Calculus of gallbladder with chronic cholecystitis without obstruction (principal); K76.0 Fatty (change of) liver, not elsewhere classified; E66.9 Obesity, unspecified; Z68.31 Body mass index [BMI] 31.0-31.9, adult
CPT/HCPCS: 47100; 47562; 80048; 84703; 85025; 88304; 88307; 88313; C9113; J0131; J0690; J1885; J2175; J2405; J2710; J2765; J3010; J7030; Z7500; Z7512; Z7610; G0378; J1170; J7999

== ENCOUNTER 2017-12-07 15:47 | Emergency (ER) | END 2017-12-07 18:16 | disposition home or self-care (01) ==

== ENCOUNTER 2018-06-21 20:55 | Emergency (ER) | END 2018-06-21 23:17 | disposition home or self-care (01) ==

== ENCOUNTER 2018-08-07 13:58 | Emergency (ER) | END 2018-08-07 16:50 | disposition home or self-care (01) ==

== ENCOUNTER 2018-11-01 22:36 | Emergency (ER) | END 2018-11-02 01:49 | disposition home or self-care (01) ==

== ENCOUNTER 2019-01-12 08:18 | Emergency (ER) | payer OTHER ==
[~2019-01-12] VITALS: Ht 172.7 cm; Wt 85.9 kg
[~2019-01-12 08:18] MED LIST changes: -ACET500C5 PO; -CEFAZOLIN 2 GM/50 ML (PMX) 50 ML IVPB ONE; +CYCL10TA7 PO; -HYDR-906 PO; +IBUP-1542 PO; +IBUP-1982 PO; -IBUP200C PO; -IBUP800T25 PO; +IBUP800T48 PO; +LORA-441 PO; +NAPR-985 PO; -ONDA4TAB14 PO; -ONDA8TAB14 PO; +SULF1TAB31 PO; -VIT D3
[2019-01-12 08:24] VITALS: BP 118/71; PULSE 81; RESP 20; Ht 172.7 cm; Wt 85.9 kg
[2019-01-12] MEDS ORDERED: KETOROLAC 30 MG INJ IM STA (08:53)
[2019-01-12] MEDS ORDERED: NAPR-985 PO (08:56)
[2019-01-12] MEDS ORDERED: BACL10TA PO (08:56)
--- NOTE | 2019-01-12 09:04 | ERD ---
ER Documentation Chief Complaint Chief Complaint Complains of back pain x 2 days HPI Patient is a 33-year-old female status post cholecystectomy, chronic back pain, presents the ER for concerns of acute exacerbation of lower back pain times 2 days. Patient denies any falls or trauma. Patient states she been taking ibu profen with minimal alleviation of the pain. Patient describes pain to be localized to her bilateral lumbar paraspinal muscles. Patient denies any radiation of the pain. Patient denies any saddle anesthesia, urine incontinence, stool incontinence. Patient denies any urinary symptoms. Patient denies any pain, chest pain, shortness of breath. Patient denies any nausea or vomiting. ROS All systems reviewed and are negative except as per history of present illness. Medications Home Meds Active Scripts Naproxen* (Naprosyn*) 500 Mg Tablet, 500 MG PO BID PRN for PAIN AND/OR INFLA MMATION, #30 TAB Prov:ALEISHA LIANG PA-C 01/12/19 Baclofen* (Baclofen*) 10 Mg Tablet, 10 MG PO Q8, #15 TAB Prov:ALEISHA LIANG PA-C 01/12/19 Cyclobenzaprine Hcl* (Cyclobenzaprine Hcl*) 10 Mg Tablet, 10 MG PO TID PRN for MUSCLE SPASMS, #15 TAB Prov:GERMAN MARC 11/29/18 Ibuprofen* (Motrin*) 800 Mg Tab, 800 MG PO Q6H PRN for PAIN AND OR ELEVATED TEMP, #30 TAB Prov:GERMAN MARC 11/29/18 Naproxen* (Naprosyn*) 500 Mg Tablet, 500 MG PO BID PRN for PAIN AND/OR INFLAMMATION, #30 TAB Prov:JORDON CORONADOC 11/02/18 Ondansetron Hcl* (Zofran*) 4 Mg Tablet, 4 MG PO Q8H PRN for NAUSEA AND/OR VOMITING, #15 TAB Prov:DEIRDRE HOUSTON MD 08/07/18 Lorazepam* (Ativan*) 0.5 Mg Tablet, 0.5 MG PO Q8H PRN for ANXIETY, #15 TAB Prov:DEIRDRE HOUSTON MD 08/07/18 Ibuprofen* (Motrin*) 600 Mg Tab, 600 MG PO Q6H PRN for PAIN AND OR ELEVATED TEMP, #30 TAB Prov:ADENIKE BRANCH SHIRT TURNER 06/21/18 Sulfamethoxazole/Trimethoprim* (Bactrim Ds* Tablet) 1 Each Tablet, 1 TAB PO BID, #14 TAB Prov:KIRSTIN WALLACE PA-C 03/25/18 Cephalexin* (Keflex*) 500 Mg Capsule, 500 MG PO QID for 7 Days, CAP Prov:KIRSTIN WALLACE PA-C 03/25/18 Acetamin/Butalbital/Caffeine* (Fioricet*) [id number] Tab, 1 TAB PO Q6H PRN for PAIN, #30 TAB Prov:JAMAICA SUMMERS MD 12/07/17 Reported Medications Omeprazole* (Omeprazole*) 20 Mg Capsule.dr, 20 MG PO DAILY, #30 CAP 04/15/17 Ibuprofen* (Ibuprofen*) 200 Mg Capsule, 200 MG PO Q6 PRN for PAIN, CAP 09/15/14 Allergies Allergies: Coded Allergies: No Known Allergy (Unverified , 11/01/18) PMhx/Soc History of Surgery: Yes (C SECTION , CHOLECYSTECTOMY ) Anesthesia Reaction: No Hx Neurological Disorder: No Hx Respiratory Disorders: No Hx Cardiac Disorders: No Hx Psychiatric Problems: No Hx Miscellaneous Medical Probl: No Hx Alcohol Use: Yes (OOC) Hx Substance Use: No Hx Tobacco Use: No FmHx Family History: No diabetes Physical Exam Vitals Vital Signs Date Temp Pulse Resp B/P (MAP) Pulse Ox O2 O2 Flow FiO2 Time Delivery Rate 01/12/19 97.5 81 20 118/71 98 08:24 (87) Physical Exam GENERAL: Well-developed, well-nourished female. Appears in no acute distress. HEAD: Normocephalic, atraumatic. EYES: Pupils are equally reactive bilaterally. EOMs grossly intact. No conjunctival erythema. NECK: Supple. No meningismus. Normal range of motion of the neck. LUNG: Clear to auscultation bilaterally. No rhonchi, wheezing, rales or coarse breath sounds. HEART: Regular rate and rhythm. No murmurs, rubs or gallops. ABDOMEN: No CVA tenderness. BACK: No midline tenderness. Tender to palpation of bilateral lumbar paraspinal muscles. EXTREMITIES: Equal pulses bilaterally. No peripheral clubbing, cyanosis or edema. No unilateral leg swelling. NEUROLOGIC: Alert and oriented. Moving all four extremities without any difficulty. Normal speech. Steady gait. SKIN: Normal color. Warm and dry. No rashes or lesions. Results 24 hrs Laboratory Tests Test 01/12/19 09:22 POC Beta HCG, Qualitative NEGATIVE Current Medications Medications Dose Sig/Richard Start Time Status Last (Trade) Ordered Route PRN Stop Time Admin Dose Reason Admin Ketorolac 30 mg ONCE STAT 01/12/19 DC 01/12/19 Tromethamine IM 08:53 01/12/19 09:24 (Toradol) 08:54 Procedures/MDM MEDICAL DECISION MAKING: This is a 33-year-old female who presents to the ER for concerns of acute exacerbation of lower back pain. Review of the [facility] [employer] system shows patient has been seen here in the emergency department for back pain in the past. Vital signs were reviewed. Patient was afebrile. Patient denied any saddle anesthesia, urinary incontinence, bowel incontinence, night pain or recent trauma. Urine test was negative. Patient was given Toradol here for pain. Patient will be discharged home with prescription for baclofen and naproxen. Patient advised not to take baclofen when driving or operating any machinery. Patient understood. Patient also advised to follow-up with a size painter for further management of her ongoing back pain. Low suspicion for cauda equine syndrome, spinal fractures, epidural abscess, spinal metastases, osteomyelitis, aortic dissection, ruptured or leaking AA, DJD, sciatica, pyelonephritis or nephrolithiasis. Patient was nontoxic, [id number] prior to discharge. PRESCRIPTIONS: Naproxen Baclofen DISCHARGE: At this time, patient is stable for discharge and outpatient management. RICE therapy and ROM exercises were advised to avoid stiffness. I have instructed the patient to follow-up with his/her primary care physician in 1-2 days. I have discussed with the patient the possibility of needing to see an child protective services specialist for further workup and imaging if the pain persists. I have instructed the patient to promptly return to the ER for any new or worsening symptoms including increased pain, swelling, warmth, urinary incontinence, stool incontinence, weakness or numbness. The patient and/or family expressed understanding of and agreement with this plan. All questions were answered. Home care instructions were provided. Disclaimer: Inadvertent spelling and grammatical errors are likely due to EHR/dictation software use and do not reflect on the overall quality of patient care. Also, please note that the electronic time recorded on this note does not necessarily reflect the actual time of the patient encounter. Departure Diagnosis: Primary Impression: Back pain Back pain location: back pain in unspecified location Chronicity: chronic Back pain laterality: bilateral Qualified Codes: M54.9 - Dorsalgia, unspec ified; G89.29 - Other chronic pain Condition: Fair Patient Instructions: Back Pain (Acute Or Chronic) Referrals: TANI MAHER MD, ANTHONY Jr., RYLIE SILVA MD [facility] () Usted se spring hecho un examen mdico de control que le indica que no est en jayda condicin que requiera tratamiento urgente en el Departamento de Emergencia. Un estudio ms profundo y el tratamiento de lemus condicin pueden esperar sin ningn riesgo hasta que usted sea atendida/o en el consultorio de lemus mdico o jayda clnica. Es responsabilidad suya arreglar jayda stefano para el seguimiento del rojas. MANEJO DE CONDICIONES NO URGENTES EN EL FUTURO 1) Si usted tiene un mdico de atencin primaria: Usted debera llamar a lemus mdico de atencin primaria antes de venir al departamento de emergencia. Despus de las horas de consultorio, lemus doctor o lemus asociado/a est disponible por telfono. El mdico o enfermero de ana en el servicio telefnico puede asesorarle por diandra medio para atender el problema, o rojas contrario se puede programar jayda stefano. 2) Si usted no tiene un mdico de atencin primaria: Llame al mdico o clnica de referencia que aparece abajo beverley las horas de consultorio para hacer jayda stefano para que le vean. CLINICAS: [facility] [phone] [place] [id number] [phone] [facility] [phone] [address] [facility]. [place] [id number] [phone] [facility]. [facility] [phone] [address] [facility]. [phone] [address] [facility] () Usted se spring hecho un examen mdico de control que le indica que no est en jayda condicin que requiera tratamiento urgente en el Departamento de Emergencia. Un estudio ms profundo y el tratamiento de lemus condicin pueden esperar sin ningn riesgo hasta que usted sea atendida/o en el consultorio de lemus mdico o jayda clnica. Es responsabilidad suya arreglar jayda stefano para el seguimiento del rojas. MANEJO DE CONDICIONES NO URGENTES EN EL FUTURO 1) Si usted tiene un mdico de atencin primaria: Usted debera llamar a lemus mdico de atencin primaria antes de venir al departamento de emergencia. Despus de las horas de consultorio, lemus doctor o lemus asociado/a est disponible por telfono. El mdico o enfermero de ana en el servicio telefnico puede asesorarle por diandra medio para atender el problema, o rojas contrario se puede programar jayda stefano. 2) Si usted no tiene un mdico de atencin primaria: Llame al mdico o condado institucions de referencia que aparece abajo beverley las horas de consultorio para hacer jayda stefano para que le vean. SI USTED NO PUEDE PAGAR PARA SARITA UN MEDICO puede ir a: [facility] [address] [place] [address] [facility] [address] [place] [address] [facility] [place] [address] [facility] [address] [place], [place] [phone] Additional Instructions: Llame al doctor MAANA y katty jayda STEFANO PARA DENTRO DE 1-2 MONZON.Dgale a la secretaria que nosotros le instruimos hacer esta stefano.Avise o llame si lemus condicin se empeora antes de la stefano. Regresa aqui si peor o no mejor. Va jayda doctor de radha. ALEISHA LIANG PA-C Jan 12, 2019 09:04
== END 2019-01-12 09:34 | disposition home or self-care (01) ==
LOC: FTE 08:18
DX: M54.5 Low back pain (principal)
CPT/HCPCS: 81025; 96372; J1885; Z7502

== ENCOUNTER 2019-02-12 00:47 | Emergency (ER) | payer OTHER ==
[~2019-02-12] VITALS: Ht 162.6 cm; Wt 86.2 kg
[~2019-02-12 00:47] MED LIST changes: +BACL10TA PO
[2019-02-12 00:58] VITALS: Ht 162.6 cm; Wt 86.2 kg
[2019-02-12] MEDS ORDERED: KETOROLAC 30 MG INJ IM STA (04:19)
[2019-02-12] MEDS ORDERED: ACET-141 PO (05:02)
[2019-02-12] MEDS ORDERED: IBUP-1542 PO (05:02)
--- NOTE | 2019-02-12 05:03 | ERD ---
ER Documentation Chief Complaint Chief Complaint LOWER BACK PAIN RADIATES TO ABD X1 WEEK.PAIN WITH URINATION ROS All systems reviewed and are negative except as per history of present illness. Medications Home Meds Active Scripts Acetaminophen* (Acetaminophen*) 500 MG Extra Strength Tablet, 500 MG PO Q4H PRN for PAIN AND OR ELEVATED TEMP, #30 TAB Prov:DARIO FAIR DO 02/12/19 Ibuprofen* (Motrin*) 600 Mg Tab, 600 MG PO Q6H PRN for PAIN, #30 TAB Prov:DARIO FAIR DO 02/12/19 Naproxen* (Naprosyn*) 500 Mg Tablet, 500 MG PO BID PRN for PAIN AND/OR INFLAMMATION, #30 TAB Prov:ALEISHA LIANGC 01/12/19 Baclofen* (Baclofen*) 10 Mg Tablet, 10 MG PO Q8, #15 TAB Prov:ALEISHA LIANGC 01/12/19 Cyclobenzaprine Hcl* (Cyclobenzaprine Hcl*) 10 Mg Tablet, 10 MG PO TID PRN for MUSCLE SPASMS, #15 TAB Prov:GERMAN MARC 11/29/18 Ibuprofen* (Motrin*) 800 Mg Tab, 800 MG PO Q6H PRN for PAIN AND OR ELEVATED TEMP, #30 TAB Prov:GERMAN MARC 11/29/18 Naproxen* (Naprosyn*) 500 Mg Tablet, 500 MG PO BID PRN for PAIN AND/OR INFLAMMATION, #30 TAB Prov:JORDON CORONADO-C 11/02/18 Ondansetron Hcl* (Zofran*) 4 Mg Tablet, 4 MG PO Q8H PRN for NAUSEA AND/OR VOMITING, #15 TAB Prov:DEIRDRE HOUSTON MD 08/07/18 Lorazepam* (Ativan*) 0.5 Mg Tablet, 0.5 MG PO Q8H PRN for ANXIETY, #15 TAB Prov:DEIRDRE HOUSTON MD 08/07/18 Ibuprofen* (Motrin*) 600 Mg Tab, 600 MG PO Q6H PRN for PAIN AND OR ELEVATED TEMP, #30 TAB Prov:ADENIKE BRANCH NP 06/21/18 Sulfamethoxazole/Trimethoprim* (Bactrim Ds* Tablet) 1 Each Tablet, 1 TAB PO BID, #14 TAB Prov:KIRSTIN WALLACE PA-C 03/25/18 Cephalexin* (Keflex*) 500 Mg Capsule, 500 MG PO QID for 7 Days, CAP Prov:KIRSTIN WALLACE PA-C 03/25/18 Acetamin/Butalbital/Caffeine* (Fioricet*) [id number] Tab, 1 TAB PO Q6H PRN for PAIN, #30 TAB Prov:JAMAICA SUMMERS MD 12/07/17 Reported Medications Omeprazole* (Omeprazole*) 20 Mg Capsule.dr, 20 MG PO DAILY, #30 CAP 04/15/17 Ibuprofen* (Ibuprofen*) 200 Mg Capsule, 200 MG PO Q6 PRN for PAIN, CAP 09/15/14 Allergies Allergies: Coded Allergies: No Known Allergy (Unverified , 11/01/18) PMhx/Soc History of Surgery: Yes (C SECTION , CHOLECYSTECTOMY ) Anesthesia Reaction: No Hx Neurological Disorder: No Hx Respiratory Disorders: No Hx Cardiac Disorders: No Hx Psychiatric Problems: No Hx Miscellaneous Medical Probl: No Hx Alcohol Use: Yes (OCCASSIONAL) Hx Substance Use: No Hx Tobacco Use: No Physical Exam Vitals Vital Signs Date Temp Pulse Resp B/P (MAP) Pulse Ox O2 O2 Flow FiO2 Time Delivery Rate 02/12/19 97.1 62 16 124/66 98 00:58 (85) Physical Exam Const: No acute distress Head: Atraumatic Eyes: Normal Conjunctiva ENT: Normal External Ears, Nose and Mouth. Neck: Full range of motion. No meningismus. Resp: Clear to auscultation bilaterally Cardio: Regular rate and rhythm, no murmurs Abd: Soft, non tender, non distended. Normal bowel sounds Skin: No petechiae or rashes Back: No midline or flank tenderness Ext: No cyanosis, or edema Neur: Awake and alert Psych: Normal Mood and Affect Results 24 hrs Laboratory Tests Test 02/12/19 04:25 02/12/19 04:32 Urine Color STRAW Urine Clarity CLEAR Urine pH 6.0 Urine Specific Start 1.014 Urine Ketones NEGATIVE mg/dL Urine Nitrite NEGATIVE mg/dL Urine Bilirubin NEGATIVE mg/dL Urine Urobilinogen NEGATIVE mg/dL Urine Leukocyte Esterase NEGATIVE Veena/ul Urine Hemoglobin NEGATIVE mg/dL Urine Glucose NEGATIVE mg/dL Urine Total Protein NEGATIVE mg/dl POC Beta HCG, Qualitative NEGATIVE Current Medications Medications Dose Sig/Richard Start Time Status Last (Trade) Ordered Route PRN Stop Time Admin Dose Reason Admin Ketorolac 30 mg ONCE STAT 02/12/19 DC 02/12/19 Tromethamine IM 04:19 02/12/19 04:35 (Toradol) 04:20 Departure Diagnosis: Primary Impression: Back pain Back pain location: low back pain Chronicity: chronic Back pain laterality: bilateral Sciatica presence: with sciatica Sciatica laterality: sciatica of right side Qualified Codes: M54.41 - Lumbago with sciatica, right side; G89.29 - Other chronic pain Condition: Fair Patient Instructions: Back Pain (Acute Or Chronic) Referrals: [facility], [facility] YOU HAVE RECEIVED A MEDICAL SCREENING EXAM AND THE RESULTS INDICATE THAT YOU DO NOT HAVE A CONDITION THAT REQUIRES URGENT TREATMENT IN THE EMERGENCY DEPARTMENT. FURTHER EVALUATION AND TREATMENT OF YOUR CONDITION CAN WAIT UNTIL YOU ARE SEEN IN YOUR DOCTORS OFFICE WITHIN THE NEXT 1-2 DAYS. IT IS YOUR RESPONSIBILITY TO MAKE AN APPOINTMENT FOR FOLOW-UP CARE. IF YOU HAVE A PRIMARY DOCTOR --you should call your primary doctor and schedule an appointment IF YOU DO NOT HAVE A PRIMARY DOCTOR YOU CAN CALL OUR PHYSICIAN REFERRAL HOTLINE AT IF YOU CAN NOT AFFORD TO SEE A PHYSICIAN YOU CAN CHOSE FROM THE FOLLOWING [facility] [address] [facility]. [facility] [address] [facility] [address] [facility] [address] [facility]. [facility] [address] [facility]. [facility]. [address] Additional Instructions: Llame al doctor MAANA y katty jayda STEFANO PARA DENTRO DE 1-2 MONZON.Dgale a la secretaria que nosotros le instruimos hacer esta stefano.Avise o llame si lemus condicin se empeora antes de la stefano. Regresa aqui si peor o no mejor. DARIO FAIR DO Feb 12, 2019 05:03
[2019-02-12 05:12] VITALS: BP 123/78; PULSE 65; RESP 18
== END 2019-02-12 05:13 | disposition home or self-care (01) ==
LOC: FTE 00:47
DX: M54.41 Lumbago with sciatica, right side (principal); G89.29 Other chronic pain
CPT/HCPCS: 81003; 81025; 96372; J1885; Z7502

== ENCOUNTER 2019-03-14 12:12 | Emergency (ER) | payer OTHER ==
[~2019-03-14] VITALS: Ht 160 cm; Wt 84.0 kg
[~2019-03-14 12:12] MED LIST changes: +ACET-141 PO
[2019-03-14 12:21] VITALS: BP 132/70; PULSE 77; RESP 16; Ht 160 cm; Wt 84.0 kg
[2019-03-14] MEDS ORDERED: ONDANSETRON (ODT) 4 MG TAB ODT STA (14:24)
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
[2019-03-14] MEDS ORDERED: MECL12.574 PO (14:52)
[2019-03-14] MEDS ORDERED: LORA-441 PO (14:52)
[2019-03-14] MEDS ORDERED: ONDA4TAB8 PO (14:52)
== END 2019-03-14 15:00 | disposition home or self-care (01) ==
LOC: FTE 12:12
DX: R42 Dizziness and giddiness (principal); R11.2 Nausea with vomiting, unspecified
CPT/HCPCS: Z7502; Z7610; 99283

== ENCOUNTER 2019-06-06 12:24 | Emergency (ER) | payer OTHER ==
[~2019-06-06] VITALS: Ht 162.6 cm; Wt 83.9 kg
[~2019-06-06 12:24] MED LIST changes: +MECL12.574 PO
[2019-06-06 12:38] VITALS: BP 117/67; PULSE 77; RESP 20; Ht 162.6 cm; Wt 83.9 kg
[2019-06-06] MEDS ORDERED: KETOROLAC 30 MG INJ IM STA (13:28)
[2019-06-06] MEDS ORDERED: ACET-141 PO (15:46)
[2019-06-06] MEDS ORDERED: METH750T93 PO (15:46)
--- NOTE | 2019-06-06 15:49 | ERD ---
ER Documentation Chief Complaint Chief Complaint R arm pain x 1 week; denies trauma; elbow pain radiating to R hand ROS All systems reviewed and are negative except as per history of present illness. Medications Home Meds Active Scripts Methocarbamol* (Robaxin*) 750 Mg Tablet, 750 MG PO TID PRN for MUSCLE SPASMS, #30 TAB Prov:FAIRDARIO DE PAZ 06/06/19 Acetaminophen* (Acetaminophen*) 500 MG Extra Strength Tablet, 500 MG PO Q4H PRN for PAIN AND OR ELEVATED TEMP, #30 TAB Prov:DARIO FAIR DO 06/06/19 Ondansetron Hcl* (Zofran*) 4 Mg Tablet, 4 MG PO Q8H PRN for NAUSEA AND/OR VOMITING, #12 TAB Prov:DEIRDRE HOUSTON MD 03/14/19 Meclizine Hcl* (Antivert*) 12.5 Mg Tab, 12.5 MG PO Q6H PRN for DIZZINESS, #20 TAB Prov:DEIRDRE HOUSTON MD 03/14/19 Lorazepam* (Ativan*) 0.5 Mg Tablet, 0.5 MG PO BID PRN for ANXIETY, #10 TAB Prov:DEIRDRE HOUSTON MD 03/14/19 Acetaminophen* (Acetaminophen*) 500 MG Extra Strength Tablet, 500 MG PO Q4H PRN for PAIN AND OR ELEVATED TEMP, #30 TAB Prov:DARIO FAIR DO 02/12/19 Ibuprofen* (Motrin*) 600 Mg Tab, 600 MG PO Q6H PRN for PAIN, #30 TAB Prov:DARIO FAIR DO 02/12/19 Naproxen* (Naprosyn*) 500 Mg Tablet, 500 MG PO BID PRN for PAIN AND/OR INFLAMMATION, #30 TAB Prov:ALEISHA LIANG PA-C 01/12/19 Baclofen* (Baclofen*) 10 Mg Tablet, 10 MG PO Q8, #15 TAB Prov:ALEISHA LIANG PA-C 01/12/19 Cyclobenzaprine Hcl* (Cyclobenzaprine Hcl*) 10 Mg Tablet, 10 MG PO TID PRN for MUSCLE SPASMS, #15 TAB Prov:GERMAN MARC 11/29/18 Ibuprofen* (Motrin*) 800 Mg Tab, 800 MG PO Q6H PRN for PAIN AND OR ELEVATED TEMP, #30 TAB Prov:GERMAN MARC 11/29/18 Naproxen* (Naprosyn*) 500 Mg Tablet, 500 MG PO BID PRN for PAIN AND/OR INFLAMMATION, #30 TAB Prov:JORDON CORONADO PA-C 11/02/18 Ondansetron Hcl* (Zofran*) 4 Mg Tablet, 4 MG PO Q8H PRN for NAUSEA AND/OR VOMITING, #15 TAB Prov:DEIRDRE HOUSTON MD 08/07/18 Lorazepam* (Ativan*) 0.5 Mg Tablet, 0.5 MG PO Q8H PRN for ANXIETY, #15 TAB Prov:DEIRDRE HOUSTON MD 08/07/18 Ibuprofen* (Motrin*) 600 Mg Tab, 600 MG PO Q6H PRN for PAIN AND OR ELEVATED TEMP, #30 TAB Prov:ADENIKE BRANCH NP 06/21/18 Sulfamethoxazole/Trimethoprim* (Bactrim Ds* Tablet) 1 Each Tablet, 1 TAB PO BID, #14 TAB Prov:KIRSTIN WALLACE PA-C 03/25/18 Cephalexin* (Keflex*) 500 Mg Capsule, 500 MG PO QID for 7 Days, CAP Prov:KIRSTIN WALLACE PA-C 03/25/18 Acetamin/Butalbital/Caffeine* (Fioricet*) [id number] Tab, 1 TAB PO Q6H PRN for PAIN, #30 TAB Prov:JAMAICA SUMMERS MD 12/07/17 Reported Medications Omeprazole* (Omeprazole*) 20 Mg Capsule.dr, 20 MG PO DAILY, #30 CAP 04/15/17 Ibuprofen* (Ibuprofen*) 200 Mg Capsule, 200 MG PO Q6 PRN for PAIN, CAP 09/15/14 Allergies Allergies: Coded Allergies: No Known Allergy (Unverified , 03/14/19) PMhx/Soc History of Surgery: Yes (gallbladder) Anesthesia Reaction: No Hx Neurological Disorder: No Hx Respiratory Disorders: No Hx Cardiac Disorders: No Hx Psychiatric Problems: No Hx Miscellaneous Medical Probl: Yes (hernia) Hx Alcohol Use: No Hx Substance Use: No Hx Tobacco Use: No Smoking Status: Never smoker Physical Exam Vitals Vital Signs Date Temp Pulse Resp B/P (MAP) Pulse Ox O2 O2 Flow FiO2 Time Delivery Rate 06/06/19 98.3 77 20 117/67 99 12:38 (84) Physical Exam Const: No acute distress Head: Atraumatic Eyes: Normal Conjunctiva ENT: Normal External Ears, Nose and Mouth. Neck: Full range of motion. No meningismus. Resp: Clear to auscultation bilaterally Cardio: Regular rate and rhythm, no murmurs Abd: Soft, non tender, non distended. Normal bowel sounds Skin: No petechiae or rashes Back: No midline or flank tenderness Ext: No cyanosis, or edema Neur: Awake and alert Psych: Normal Mood and Affect Results 24 hrs Laboratory Tests Test 06/06/19 13:50 POC Beta HCG, Qualitative NEGATIVE Current Medications Medications Dose Sig/Richard Start Time Status Last (Trade) Ordered Route PRN Stop Time Admin Dose Reason Admin Ketorolac 30 mg ONCE STAT 06/06/19 DC 06/06/19 Tromethamine IM 13:28 13:52 (Toradol) 06/06/19 13:30 Departure Diagnosis: Primary Impression: Pain of right arm Condition: Fair Patient Instructions: Muscle Strain, Extremity Referrals: JASON GARCIA MD (PCP) Additional Instructions: Call your primary care doctor TOMORROW for an appointment during the next 1-2 days.See the doctor sooner or return here if your condition worsens before your appointment time. DARIO FAIR DO Jun 06, 2019 15:49
== END 2019-06-06 15:57 | disposition home or self-care (01) ==
LOC: FTE 12:24
DX: M79.601 Pain in right arm (principal)
CPT/HCPCS: 73090; 73110; 81025; J1885; 96372